=== PATIENT | female | born 1940 | race Caucasian/White ===

== ENCOUNTER 2021-02-01 19:31 | Inpatient (IN) | payer OTHER, MEDICAID ==
[~2021-02-01] VITALS: Ht 152.4 cm; Wt 75.7 kg
[2021-02-01] MEDS ORDERED: PIPERACILLIN/TAZ 3.375G PREMIX 50 ML IV ONE (20:30)
[2021-02-01] MEDS ORDERED: VANCOMYCIN 1 G PREMIX 200 ML IV ONE (20:30)
[2021-02-01] MEDS ORDERED: ASPIRIN 81MG TABLET PO ONE (20:30)
[2021-02-01] MEDS ORDERED: DEXAMETHASONE 10 MG/ML VIAL IV ONE (20:30)
[2021-02-01] MEDS ORDERED: SODIUM CHLORIDE 0.9% 1000ML BAG (SEPSIS BOLUS) IV ONE (20:30)
[2021-02-01 20:41] LABS: BASOPHILS % 0.9 % (0.0-2.0); EOSINOPHILS % 0.5 % (0.0-5.0); HEMATOCRIT. 29.9 % (36.0-48.0); HEMOGLOBIN. 9.9 g/dL (12.0-16.0); LYMPHOCYTES % 8.7 % (20.0-50.0); MEAN CORPUSCULAR HEMOGLOBIN 27.2 pg (28.0-32.0); MEAN CORPUSCULAR VOLUME 82.1 fL (81.0-99.0); MEAN PLATELET VOLUME 10.4 fl (7.4-10.4); MONOCYTES % 10.2 % (2.0-8.0); NEUTROPHILS % 79.7 % (40.0-76.0); PLATELET 153 x1000/uL (130-400); RED BLOOD CELL COUNT 3.64 mill/uL (4.2-5.4)
[2021-02-01 20:48] LABS: CHLORIDE 105 mEq/L (98-107)
[2021-02-01 21:04] LABS: PROTHROMBIN TIME 11.1 sec (9.6-11.0)
[2021-02-01 21:32] LABS: BG BASE EXCESS -2.3 mmol/L (-2.0-2.0); BG CARBOXYHEMOGLOBIN 0.2 % (0.5-1.5); BG DEOXYHEMOGLOBIN 3.7 % (0.0-5.0); BG FRACTION INSPIRED OXYGEN 100; BG HCO3 ACT 29.7 mmol/L (22.0-26.0); BG METHEMOGLOBIN 0.4 % (0.0-1.5); BG OXYGEN SATURATION 96.3 % (92.0-98.5); BG OXYHEMOGLOBIN 95.7 % (94.0-97.0); BG PCO2 102.7 mmHg (35.0-45.0); BG PH 7.079 (7.350-7.450); BG PO2 116.1 mmHg (75.0-100.0); BG TOTAL HEMOGLOBIN 11.3 g/dL (12.0-18.0); BG VENT MODE MASK - BIPAP
[2021-02-01] MEDS ORDERED: PROPOFOL 10MG/ML 100ML 100 ML IV STA (21:32)
[2021-02-01] MEDS ORDERED: ETOMIDATE 2MG/ML 10ML VIAL IV ONE (21:45)
[2021-02-01] MEDS ORDERED: VECURONIUM BROMIDE 10 MG/VIAL IV ONE (21:45)
[2021-02-01] MEDS ORDERED: NOREPINEPHRINE 8 MG in DEXT 5% WATER 242 ML IV STA (22:36)
[2021-02-01 22:56] LABS: BG BASE EXCESS -4.1 mmol/L (-2.0-2.0); BG CARBOXYHEMOGLOBIN 0.3 % (0.5-1.5); BG DEOXYHEMOGLOBIN 2.4 % (0.0-5.0); BG FRACTION INSPIRED OXYGEN 100; BG HCO3 ACT 19.8 mmol/L (22.0-26.0); BG METHEMOGLOBIN 0.1 % (0.0-1.5); BG OXYGEN SATURATION 97.6 % (92.0-98.5); BG OXYHEMOGLOBIN 97.2 % (94.0-97.0); BG PCO2 32.1 mmHg (35.0-45.0); BG PH 7.409 (7.350-7.450); BG PO2 103.3 mmHg (75.0-100.0); BG TOTAL HEMOGLOBIN 10.1 g/dL (12.0-18.0); BG TOTAL RESPIRATORY RATE 18 b/min; BG VENT MODE VENT - AC
[2021-02-01 22:57] LABS: BG SAMPLE SITE RIGHT BRACHIAL
[2021-02-01] MEDS ORDERED: NOREPINEPHRINE 8MG/250ML PMX 250 ML IV ONE (23:30)
[2021-02-02] VITALS (34 sets, daily range): BP systolic 108–183; BP diastolic 29–128
[2021-02-02 00:23] LABS: HEPATITIS B SURFACE AB > 1000.0 mIU/mL
[2021-02-02 00:34] LABS: HEPATITIS B SURFACE ANTIGEN NEGATIVE
[2021-02-02 01:02] LABS: CLARITY URINE CLEAR (CLEAR); COLOR URINE YELLOW (YELLOW); KETONES URINE NEGATIVE (NEGATIVE); LEUKOCYTE ESTERASE URINE NEGATIVE (NEGATIVE); NITRITE URINE NEGATIVE (NEGATIVE); OCCULT BLOOD URINE NEGATIVE (NEGATIVE); PH URINE 5.5 (4.5-8.0); PROTEIN URINE TRACE (NEGATIVE); SPECIFIC GRAVITY URINE 1.015 (1.005-1.030); UROBILINOGEN URINE 0.2 E.U./dL (0.2-1.0)
[2021-02-02] MEDS ORDERED: CEFTRIAXONE 1 G PREMIX 50 ML IV SCH (03:15)
[2021-02-02] MEDS ORDERED: ACETAMINOPHEN 325MG TABLET PO PRN (03:15)
[2021-02-02] MEDS: DEXT 5%/0.45% NACL 1000ML 1,000 ML IV SCH ×2 (03:22→16:09)
[2021-02-02] MEDS ORDERED: PROPOFOL 10MG/ML 100ML 100 ML IV PRN (04:00)
[2021-02-02] MEDS ORDERED: NOREPINEPHRINE 8 MG in DEXTROSE 5% WATER 250 ML IV PRN (04:00)
[2021-02-02] MEDS ORDERED: AZITHROMYCIN 500MG/250ML 250 ML IV SCH (04:00)
[2021-02-02] MEDS ORDERED: CEFTRIAXONE 1,000 MG in DEXTROSE 5% WATER 50 ML IV SCH (04:00)
[2021-02-02] MEDS ORDERED: IPRATROPIUM/ALBUTEROL 0.5-3(2.5)MG/3ML NEB HHN PRN (08:15)
[2021-02-02] MEDS: ENOXAPARIN 40MG/0.4ML SYR SUBCUT SCH (11:00)
[2021-02-02] MEDS: IPRATROPIUM/ALBUTEROL 0.5-3(2.5)MG/3ML NEB HHN SCH ×3 (11:48→20:20)
[2021-02-02] MEDS: PROPOFOL 10MG/ML 100ML 100 ML IV PRN ×2 (11:55→19:25)
[2021-02-02] MEDS: HYDRALAZINE 20MG/ML VIAL IV PRN (16:08)
[2021-02-02 18:53] LABS: *AMPHETAMINES SCREEN URINE NEGATIVE (NEGATIVE); *BARBITURATES SCREEN URINE NEGATIVE (NEGATIVE); *COCAINE SCREEN URINE NEGATIVE (NEGATIVE); CANNABINOID URINE SCREEN NEGATIVE (NEGATIVE); METHADONE URINE SCREEN NEGATIVE (NEGATIVE); OPIATES URINE SCREEN NEGATIVE (NEGATIVE); PHENCYCLIDINE URINE SCREEN NEGATIVE (NEGATIVE)
[2021-02-02 18:54] LABS: *BENZODIAZEPINES SCREEN URINE NEGATIVE (NEGATIVE)
[2021-02-02] MEDS: AMLODIPINE 5MG TABLET PO SCH (21:16)
[2021-02-02] MEDS: HYDRALAZINE HCL 25MG TABLET PO SCH (21:16)
[2021-02-03] VITALS (53 sets, daily range): BP systolic 90–144; BP diastolic 33–93
[2021-02-03] MEDS: IPRATROPIUM/ALBUTEROL 0.5-3(2.5)MG/3ML NEB HHN SCH ×6 (00:08→20:16)
[2021-02-03] MEDS: PROPOFOL 10MG/ML 100ML 100 ML IV PRN (05:08)
[2021-02-03 05:10] LABS: HIV SCREEN 4G Non Reactive (Non Reactive)
[2021-02-03] MEDS: HYDRALAZINE HCL 25MG TABLET PO SCH ×3 (05:13→21:21)
[2021-02-03] MEDS: DEXT 5%/0.45% NACL 1000ML 1,000 ML IV SCH ×2 (05:41→18:17)
[2021-02-03 08:54] LABS: BG BASE EXCESS 2.2 mmol/L (-2.0-2.0); BG CARBOXYHEMOGLOBIN 0.3 % (0.5-1.5); BG DEOXYHEMOGLOBIN 1.8 % (0.0-5.0); BG FRACTION INSPIRED OXYGEN 60; BG HCO3 ACT 26.1 mmol/L (22.0-26.0); BG METHEMOGLOBIN 0.3 % (0.0-1.5); BG OXYGEN SATURATION 98.2 % (92.0-98.5); BG OXYHEMOGLOBIN 97.6 % (94.0-97.0); BG PCO2 38.3 mmHg (35.0-45.0); BG PH 7.452 (7.350-7.450); BG PO2 116.4 mmHg (75.0-100.0); BG SAMPLE SITE RIGHT RADIAL; BG TOTAL HEMOGLOBIN 10.6 g/dL (12.0-18.0); BG VENT MODE VENT - AC
[2021-02-03] MEDS: AMLODIPINE 5MG TABLET PO SCH ×2 (09:00→21:20)
[2021-02-03] MEDS: CEFTRIAXONE 1,000 MG in DEXTROSE 5% WATER 50 ML IV SCH (09:17)
[2021-02-03] MEDS: AZITHROMYCIN 500MG in DEXTROSE 5% WATER 250ML IV SCH (09:17)
[2021-02-03] MEDS: ENOXAPARIN 40MG/0.4ML SYR SUBCUT SCH (09:18)
[2021-02-03 10:08] LABS: BASOPHILS % 0.7 % (0.0-2.0); EOSINOPHILS % 2.7 % (0.0-5.0); HEMOGLOBIN. 10.8 g/dL (12.0-16.0); LYMPHOCYTES % 16.5 % (20.0-50.0); MEAN CORPUSCULAR HEMOGLOBIN 27.3 pg (28.0-32.0); MEAN CORPUSCULAR VOLUME 83.3 fL (81.0-99.0); MEAN PLATELET VOLUME 10.7 fl (7.4-10.4); MONOCYTES % 6.7 % (2.0-8.0); NEUTROPHILS % 73.4 % (40.0-76.0); PLATELET 167 x1000/uL (130-400); RED BLOOD CELL COUNT 3.96 mill/uL (4.2-5.4); RED CELL DISTRIBUTION WIDTH 16.5 % (11.6-14.6)
[2021-02-03 10:10] LABS: CHLORIDE 107 mEq/L (98-107)
[2021-02-03 10:17] LABS: LDL CHOLESTEROL 56 mg/dL (5-100)
[2021-02-03 10:18] LABS: HDL CHOLESTEROL 24 mg/dL (40-59); TOTAL IRON BINDING CAPACITY 245 ug/dL (250-450)
[2021-02-03 10:52] LABS: VITAMIN B12 SERUM 159 pg/mL (211-911)
[2021-02-03] MEDS ORDERED: PROPOFOL 10MG/ML 100ML 100 ML IV PRN (12:00)
[2021-02-03 12:52] LABS: BG BASE EXCESS 2.4 mmol/L (-2.0-2.0); BG CARBOXYHEMOGLOBIN 0.3 % (0.5-1.5); BG FRACTION INSPIRED OXYGEN 50; BG HCO3 ACT 25.9 mmol/L (22.0-26.0); BG METHEMOGLOBIN 0.7 % (0.0-1.5); BG PCO2 35.8 mmHg (35.0-45.0); BG PH 7.477 (7.350-7.450); BG PO2 249.8 mmHg (75.0-100.0); BG SAMPLE SITE RIGHT RADIAL; BG TOTAL HEMOGLOBIN 11.1 g/dL (12.0-18.0); BG VENT MODE VENT - CPAP
[2021-02-04] VITALS (51 sets, daily range): BP systolic 101–156; BP diastolic 42–112
[2021-02-04] MEDS: DEXT 5%/0.45% NACL 1000ML 1,000 ML IV SCH (03:58)
[2021-02-04] MEDS: HYDRALAZINE HCL 25MG TABLET PO SCH ×3 (07:20→22:31)
[2021-02-04] MEDS: IPRATROPIUM/ALBUTEROL 0.5-3(2.5)MG/3ML NEB HHN SCH ×4 (09:15→20:34)
[2021-02-04] MEDS: AZITHROMYCIN 500MG in DEXTROSE 5% WATER 250ML IV SCH (09:42)
[2021-02-04] MEDS: ENOXAPARIN 40MG/0.4ML SYR SUBCUT SCH (09:42)
[2021-02-04] MEDS: CEFTRIAXONE 1,000 MG in DEXTROSE 5% WATER 50 ML IV SCH (09:42)
[2021-02-04] MEDS: AMLODIPINE 5MG TABLET PO SCH ×2 (09:44→22:32)
[2021-02-04 11:20] LABS: BASOPHILS % 0.8 % (0.0-2.0); EOSINOPHILS % 3.6 % (0.0-5.0); HEMATOCRIT. 31.7 % (36.0-48.0); HEMOGLOBIN. 10.4 g/dL (12.0-16.0); MEAN CORPUSCULAR HEMOGLOBIN 27.3 pg (28.0-32.0); MEAN CORPUSCULAR VOLUME 83.2 fL (81.0-99.0); MEAN PLATELET VOLUME 10.4 fl (7.4-10.4); MONOCYTES % 6.6 % (2.0-8.0); PLATELET 189 x1000/uL (130-400); RED BLOOD CELL COUNT 3.81 mill/uL (4.2-5.4); RED CELL DISTRIBUTION WIDTH 16.5 % (11.6-14.6)
[2021-02-04 11:21] LABS: CHLORIDE 113 mEq/L (98-107)
[2021-02-04 12:40] LABS: BG BASE EXCESS 2.2 mmol/L (-2.0-2.0); BG CARBOXYHEMOGLOBIN 0.3 % (0.5-1.5); BG DEOXYHEMOGLOBIN 2.1 % (0.0-5.0); BG FRACTION INSPIRED OXYGEN 40; BG HCO3 ACT 27.3 mmol/L (22.0-26.0); BG METHEMOGLOBIN 0.1 % (0.0-1.5); BG OXYGEN SATURATION 97.9 % (92.0-98.5); BG OXYHEMOGLOBIN 97.5 % (94.0-97.0); BG PCO2 44.5 mmHg (35.0-45.0); BG PH 7.405 (7.350-7.450); BG PO2 106.8 mmHg (75.0-100.0); BG SAMPLE SITE RIGHT BRACHIAL; BG TOTAL HEMOGLOBIN 11.2 g/dL (12.0-18.0); BG VENT MODE COOL AEROSOL
[2021-02-04] MEDS ORDERED: DEXTROSE 50% WATER 50ML SYRINGE IV PRN (14:45)
[2021-02-04] MEDS: DORZOLAM/TIMOLOL 2.23/0.68% OPHTH DROPS 10ML BOTHEYE SCH ×2 (14:56→22:31)
[2021-02-04] MEDS: INSULIN LISPRO 100 UNITS/ML SUBCUT SCH ×2 (18:20→21:00)
[2021-02-04] MEDS: BLOOD SUGAR DIAGNOSTIC STRIP TEST SCH ×2 (18:49→21:00)
[2021-02-04] MEDS: LATANOPROST 0.005% OPHTH DROPS 2.5ML BOTHEYE SCH (22:31)
[2021-02-05] VITALS (27 sets, daily range): BP systolic 108–164; BP diastolic 56–131
[2021-02-05] MEDS: IPRATROPIUM/ALBUTEROL 0.5-3(2.5)MG/3ML NEB HHN SCH ×5 (01:00→20:49)
[2021-02-05] MEDS: HYDRALAZINE HCL 25MG TABLET PO SCH ×3 (05:23→21:53)
[2021-02-05] MEDS: BLOOD SUGAR DIAGNOSTIC STRIP TEST SCH ×4 (06:30→20:44)
[2021-02-05] MEDS: INSULIN LISPRO 100 UNITS/ML SUBCUT SCH ×4 (07:26→20:44)
[2021-02-05] MEDS: AMLODIPINE 5MG TABLET PO SCH ×2 (08:15→20:53)
[2021-02-05] MEDS: ENOXAPARIN 40MG/0.4ML SYR SUBCUT SCH (08:16)
[2021-02-05] MEDS: DORZOLAM/TIMOLOL 2.23/0.68% OPHTH DROPS 10ML BOTHEYE SCH ×2 (08:16→20:54)
[2021-02-05] MEDS: AZITHROMYCIN 500MG in DEXTROSE 5% WATER 250ML IV SCH (08:16)
[2021-02-05] MEDS: CEFTRIAXONE 1,000 MG in DEXTROSE 5% WATER 50 ML IV SCH (11:00)
[2021-02-05] MEDS: LATANOPROST 0.005% OPHTH DROPS 2.5ML BOTHEYE SCH (20:54)
[2021-02-06] VITALS (10 sets, daily range): BP systolic 107–149; BP diastolic 54–99
[2021-02-06] MEDS: HYDRALAZINE HCL 25MG TABLET PO SCH (05:23)
[2021-02-06] MEDS: BLOOD SUGAR DIAGNOSTIC STRIP TEST SCH ×4 (05:59→21:00)
[2021-02-06] MEDS: INSULIN LISPRO 100 UNITS/ML SUBCUT SCH ×4 (06:00→21:00)
[2021-02-06] MEDS: IPRATROPIUM/ALBUTEROL 0.5-3(2.5)MG/3ML NEB HHN SCH ×4 (08:25→20:08)
[2021-02-06] MEDS: DORZOLAM/TIMOLOL 2.23/0.68% OPHTH DROPS 10ML BOTHEYE SCH ×2 (08:48→21:40)
[2021-02-06] MEDS: AMLODIPINE 5MG TABLET PO SCH ×2 (08:48→21:38)
[2021-02-06] MEDS: ENOXAPARIN 40MG/0.4ML SYR SUBCUT SCH (08:48)
[2021-02-06] MEDS ORDERED: AZITHROMYCIN 500 MG TABLET PO SCH (09:00)
[2021-02-06] MEDS: CEFTRIAXONE 1,000 MG in DEXTROSE 5% WATER 50 ML IV SCH (10:22)
[2021-02-06 12:34] LABS: BG BASE EXCESS 5.4 mmol/L (-2.0-2.0); BG CARBOXYHEMOGLOBIN 0.2 % (0.5-1.5); BG DEOXYHEMOGLOBIN 3.5 % (0.0-5.0); BG FRACTION INSPIRED OXYGEN 28; BG HCO3 ACT 29.6 mmol/L (22.0-26.0); BG METHEMOGLOBIN 0.3 % (0.0-1.5); BG OXYGEN SATURATION 96.5 % (92.0-98.5); BG PCO2 42.1 mmHg (35.0-45.0); BG PH 7.465 (7.350-7.450); BG PO2 84.8 mmHg (75.0-100.0); BG SAMPLE SITE RIGHT BRACHIAL; BG TOTAL HEMOGLOBIN 11.3 g/dL (12.0-18.0); BG VENT MODE NASAL CANNULA
[2021-02-06] MEDS: HYDRALAZINE HCL 50MG TABLET PO SCH ×2 (14:00→21:38)
[2021-02-06] MEDS: LATANOPROST 0.005% OPHTH DROPS 2.5ML BOTHEYE SCH (21:40)
[2021-02-06] MEDS: ONDANSETRON HCL 4MG/2ML INJ IV PRN (22:41)
[2021-02-06] MEDS ORDERED: LACTULOSE 20G/30ML UDC PO PRN (23:30)
[2021-02-07] VITALS (33 sets, daily range): BP systolic 89–146; BP diastolic 34–110
[2021-02-07 03:43] LABS: BG BASE EXCESS 1.5 mmol/L (-2.0-2.0); BG CARBOXYHEMOGLOBIN 0.2 % (0.5-1.5); BG DEOXYHEMOGLOBIN 7.6 % (0.0-5.0); BG FRACTION INSPIRED OXYGEN 50; BG HCO3 ACT 32.7 mmol/L (22.0-26.0); BG METHEMOGLOBIN 0.2 % (0.0-1.5); BG OXYGEN SATURATION 92.4 % (92.0-98.5); BG PCO2 97.7 mmHg (35.0-45.0); BG PH 7.143 (7.350-7.450); BG PO2 83.4 mmHg (75.0-100.0); BG SAMPLE SITE RIGHT RADIAL; BG TOTAL HEMOGLOBIN 11.4 g/dL (12.0-18.0); BG VENT MODE MASK - BIPAP
[2021-02-07] MEDS: HYDRALAZINE HCL 50MG TABLET PO SCH ×3 (06:00→22:00)
[2021-02-07] MEDS: BLOOD SUGAR DIAGNOSTIC STRIP TEST SCH ×4 (07:30→23:23)
[2021-02-07] MEDS: IPRATROPIUM/ALBUTEROL 0.5-3(2.5)MG/3ML NEB HHN SCH ×4 (08:00→20:33)
[2021-02-07] MEDS: INSULIN LISPRO 100 UNITS/ML SUBCUT SCH ×4 (08:00→23:32)
[2021-02-07] MEDS ORDERED: ETOMIDATE 2MG/ML 10ML VIAL IV ONE ×2 (08:10→13:51)
[2021-02-07] MEDS ORDERED: SODIUM CHLORIDE 0.9% 10ML VIAL ONE ×2 (08:10→13:51)
[2021-02-07] MEDS ORDERED: VECURONIUM BROMIDE 10 MG/VIAL IV ONE ×2 (08:10→13:51)
[2021-02-07] MEDS: AMLODIPINE 5MG TABLET PO SCH ×2 (09:00→21:00)
[2021-02-07] MEDS: LACTULOSE 20G/30ML UDC PO SCH (09:00)
[2021-02-07] MEDS: ENOXAPARIN 40MG/0.4ML SYR SUBCUT SCH (09:15)
[2021-02-07] MEDS: DORZOLAM/TIMOLOL 2.23/0.68% OPHTH DROPS 10ML BOTHEYE SCH ×2 (09:18→22:02)
[2021-02-07 09:39] LABS: BG BASE EXCESS 2.6 mmol/L (-2.0-2.0); BG CARBOXYHEMOGLOBIN 0.3 % (0.5-1.5); BG DEOXYHEMOGLOBIN 12.6 % (0.0-5.0); BG HCO3 ACT 34.2 mmol/L (22.0-26.0); BG METHEMOGLOBIN 0.3 % (0.0-1.5); BG OXYGEN SATURATION 87.3 % (92.0-98.5); BG OXYHEMOGLOBIN 86.8 % (94.0-97.0); BG PCO2 101.7 mmHg (35.0-45.0); BG PH 7.144 (7.350-7.450); BG PO2 62.9 mmHg (75.0-100.0); BG SAMPLE SITE RIGHT BRACHIAL; BG TOTAL HEMOGLOBIN 11.7 g/dL (12.0-18.0); BG VENT MODE MASK - BIPAP
[2021-02-07 11:02] LABS: BG BASE EXCESS 3.2 mmol/L (-2.0-2.0); BG DEOXYHEMOGLOBIN 1.9 % (0.0-5.0); BG FRACTION INSPIRED OXYGEN 60; BG HCO3 ACT 26.1 mmol/L (22.0-26.0); BG METHEMOGLOBIN 0.1 % (0.0-1.5); BG OXYGEN SATURATION 98.1 % (92.0-98.5); BG PH 7.503 (7.350-7.450); BG PO2 98.1 mmHg (75.0-100.0); BG SAMPLE SITE RIGHT RADIAL; BG TOTAL HEMOGLOBIN 11.3 g/dL (12.0-18.0); BG VENT MODE VENT - AC
[2021-02-07] MEDS: CEFEPIME 2,000 MG in DEXT 5% WATER 100 ML IV SCH ×2 (11:34→21:11)
[2021-02-07] MEDS: PROPOFOL 10MG/ML 100ML 100 ML IV PRN (11:37)
[2021-02-07 11:57] LABS: CHLORIDE 106 mEq/L (98-107)
[2021-02-07 12:06] LABS: BASOPHILS % 0.7 % (0.0-2.0); EOSINOPHILS % 1.3 % (0.0-5.0); HEMATOCRIT. 31.5 % (36.0-48.0); HEMOGLOBIN. 10.4 g/dL (12.0-16.0); LYMPHOCYTES % 12.8 % (20.0-50.0); MEAN CORPUSCULAR HEMOGLOBIN 27.1 pg (28.0-32.0); MEAN CORPUSCULAR VOLUME 82.3 fL (81.0-99.0); MEAN PLATELET VOLUME 9.1 fl (7.4-10.4); MONOCYTES % 7.3 % (2.0-8.0); NEUTROPHILS % 77.9 % (40.0-76.0); PLATELET 145 x1000/uL (130-400); RED BLOOD CELL COUNT 3.83 mill/uL (4.2-5.4)
[2021-02-07] MEDS: PANTOPRAZOLE SODIUM 40 MG/VIAL IV SCH (12:29)
[2021-02-07] MEDS ORDERED: LACTULOSE 20G/30ML UDC PO SCH (13:00)
[2021-02-07] MEDS: METHYLPREDNISOLONE SOD SUCC 125 MG/2 ML VIAL IV SCH ×2 (13:35→22:02)
[2021-02-07] MEDS: FENTANYL CITRATE/PF 2,500 MCG in SODIUM CHLORIDE 0.9% 200 ML IV PRN (18:05)
[2021-02-07] MEDS: LATANOPROST 0.005% OPHTH DROPS 2.5ML BOTHEYE SCH (21:10)
[2021-02-07 23:42] LABS: BG CARBOXYHEMOGLOBIN 0.3 % (0.5-1.5); BG DEOXYHEMOGLOBIN 0.3 % (0.0-5.0); BG FRACTION INSPIRED OXYGEN 100; BG HCO3 ACT 28.4 mmol/L (22.0-26.0); BG METHEMOGLOBIN 0.2 % (0.0-1.5); BG OXYGEN SATURATION 99.7 % (92.0-98.5); BG OXYHEMOGLOBIN 99.2 % (94.0-97.0); BG PCO2 52.6 mmHg (35.0-45.0); BG SAMPLE SITE LEFT BRACHIAL; BG TOTAL HEMOGLOBIN 11.8 g/dL (12.0-18.0); BG VENT MODE MASK - BIPAP
[2021-02-08] VITALS (45 sets, daily range): BP systolic 83–149; BP diastolic 38–104
[2021-02-08] MEDS: IPRATROPIUM/ALBUTEROL 0.5-3(2.5)MG/3ML NEB HHN SCH ×6 (00:41→20:14)
[2021-02-08 05:36] LABS: BG BASE EXCESS 0.2 mmol/L (-2.0-2.0); BG DEOXYHEMOGLOBIN 0.5 % (0.0-5.0); BG FRACTION INSPIRED OXYGEN 50; BG HCO3 ACT 28.7 mmol/L (22.0-26.0); BG METHEMOGLOBIN 0.2 % (0.0-1.5); BG OXYGEN SATURATION 99.5 % (92.0-98.5); BG OXYHEMOGLOBIN 99.3 % (94.0-97.0); BG PCO2 67.2 mmHg (35.0-45.0); BG PH 7.248 (7.350-7.450); BG PO2 264.3 mmHg (75.0-100.0); BG SAMPLE SITE LEFT BRACHIAL; BG TOTAL HEMOGLOBIN 11.2 g/dL (12.0-18.0); BG VENT MODE MASK - BIPAP
[2021-02-08] MEDS ORDERED: SODIUM CHLORIDE 0.9% 250 ML IV ONE (05:45)
[2021-02-08] MEDS: INSULIN LISPRO 100 UNITS/ML SUBCUT SCH ×3 (06:00→18:00)
[2021-02-08] MEDS: BLOOD SUGAR DIAGNOSTIC STRIP TEST SCH ×3 (06:00→18:04)
[2021-02-08] MEDS: HYDRALAZINE HCL 50MG TABLET PO SCH ×3 (06:00→22:00)
[2021-02-08 06:07] LABS: CHLORIDE 105 mEq/L (98-107)
[2021-02-08] MEDS: METHYLPREDNISOLONE SOD SUCC 125 MG/2 ML VIAL IV SCH ×3 (06:42→21:58)
[2021-02-08 07:43] LABS: BG BASE EXCESS 0.9 mmol/L (-2.0-2.0); BG DEOXYHEMOGLOBIN 2.8 % (0.0-5.0); BG FRACTION INSPIRED OXYGEN 50; BG HCO3 ACT 29.6 mmol/L (22.0-26.0); BG METHEMOGLOBIN 0.1 % (0.0-1.5); BG OXYGEN SATURATION 97.2 % (92.0-98.5); BG OXYHEMOGLOBIN 97.1 % (94.0-97.0); BG PCO2 70.1 mmHg (35.0-45.0); BG PH 7.244 (7.350-7.450); BG PO2 104.1 mmHg (75.0-100.0); BG SAMPLE SITE LEFT BRACHIAL; BG TOTAL HEMOGLOBIN 11.5 g/dL (12.0-18.0); BG TOTAL RESPIRATORY RATE 28 b/min; BG VENT MODE MASK - BIPAP
[2021-02-08] MEDS ORDERED: PROPOFOL 10MG/ML 100ML 100 ML IV PRN (08:00)
[2021-02-08] MEDS ORDERED: TERBUTALINE SULFATE 1MG/ML VIAL SUBCUT NR (08:00)
[2021-02-08] MEDS: PROPOFOL 10MG/ML 100ML 100 ML IV PRN (08:21)
[2021-02-08] MEDS: AMLODIPINE 5MG TABLET PO SCH ×2 (09:00→21:00)
[2021-02-08] MEDS: LACTULOSE 20G/30ML UDC PO SCH (09:14)
[2021-02-08] MEDS: ENOXAPARIN 40MG/0.4ML SYR SUBCUT SCH (09:14)
[2021-02-08] MEDS: CEFEPIME 2,000 MG in DEXT 5% WATER 100 ML IV SCH ×2 (09:14→21:59)
[2021-02-08] MEDS: PANTOPRAZOLE SODIUM 40 MG/VIAL IV SCH (09:14)
[2021-02-08] MEDS: DORZOLAM/TIMOLOL 2.23/0.68% OPHTH DROPS 10ML BOTHEYE SCH ×2 (09:15→21:59)
[2021-02-08 09:57] LABS: BG BASE EXCESS 3.3 mmol/L (-2.0-2.0); BG DEOXYHEMOGLOBIN 0.9 % (0.0-5.0); BG FRACTION INSPIRED OXYGEN 60; BG METHEMOGLOBIN 0.2 % (0.0-1.5); BG OXYGEN SATURATION 99.1 % (92.0-98.5); BG OXYHEMOGLOBIN 98.9 % (94.0-97.0); BG PO2 168.9 mmHg (75.0-100.0); BG SAMPLE SITE RIGHT RADIAL; BG TOTAL HEMOGLOBIN 11.2 g/dL (12.0-18.0); BG VENT MODE VENT - AC
[2021-02-08 10:17] LABS: BASOPHILS % 0.1 % (0.0-2.0); HEMATOCRIT. 32.7 % (36.0-48.0); HEMOGLOBIN. 10.6 g/dL (12.0-16.0); LYMPHOCYTES % 9.5 % (20.0-50.0); MEAN CORPUSCULAR HEMOGLOBIN 27.2 pg (28.0-32.0); MEAN CORPUSCULAR VOLUME 83.5 fL (81.0-99.0); MEAN PLATELET VOLUME 10.4 fl (7.4-10.4); MONOCYTES % 4.2 % (2.0-8.0); NEUTROPHILS % 86.2 % (40.0-76.0); PLATELET 235 x1000/uL (130-400); RED BLOOD CELL COUNT 3.91 mill/uL (4.2-5.4); RED CELL DISTRIBUTION WIDTH 16.3 % (11.6-14.6)
[2021-02-08] MEDS: LATANOPROST 0.005% OPHTH DROPS 2.5ML BOTHEYE SCH (21:59)
[2021-02-09] VITALS (58 sets, daily range): BP systolic 76–185; BP diastolic 28–100
[2021-02-09] MEDS: IPRATROPIUM/ALBUTEROL 0.5-3(2.5)MG/3ML NEB HHN SCH ×6 (00:31→20:15)
[2021-02-09] MEDS: BLOOD SUGAR DIAGNOSTIC STRIP TEST SCH ×5 (00:52→23:47)
[2021-02-09] MEDS: INSULIN LISPRO 100 UNITS/ML SUBCUT SCH ×4 (00:57→17:34)
[2021-02-09] MEDS: FENTANYL CITRATE/PF 2,500 MCG in SODIUM CHLORIDE 0.9% 200 ML IV PRN ×2 (01:08→15:36)
[2021-02-09 06:15] LABS: CHLORIDE 105 mEq/L (98-107)
[2021-02-09 06:21] LABS: HEMATOCRIT. 30.4 % (36.0-48.0); HEMOGLOBIN. 9.9 g/dL (12.0-16.0); MEAN CORPUSCULAR HEMOGLOBIN 26.6 pg (28.0-32.0); MEAN PLATELET VOLUME 10.5 fl (7.4-10.4); PLATELET 178 x1000/uL (130-400); RED BLOOD CELL COUNT 3.71 mill/uL (4.2-5.4); RED CELL DISTRIBUTION WIDTH 15.8 % (11.6-14.6)
[2021-02-09] MEDS: METHYLPREDNISOLONE SOD SUCC 125 MG/2 ML VIAL IV SCH ×3 (07:07→21:38)
[2021-02-09] MEDS: HYDRALAZINE HCL 50MG TABLET PO SCH ×3 (07:07→21:38)
[2021-02-09 08:08] LABS: PLATELET ESTIMATE NORMAL
[2021-02-09 08:50] LABS: BG BASE EXCESS 4.1 mmol/L (-2.0-2.0); BG DEOXYHEMOGLOBIN 0.9 % (0.0-5.0); BG FRACTION INSPIRED OXYGEN 60; BG HCO3 ACT 26.6 mmol/L (22.0-26.0); BG METHEMOGLOBIN 0.3 % (0.0-1.5); BG OXYGEN SATURATION 99.1 % (92.0-98.5); BG OXYHEMOGLOBIN 98.8 % (94.0-97.0); BG PCO2 32.7 mmHg (35.0-45.0); BG PH 7.528 (7.350-7.450); BG PO2 162.9 mmHg (75.0-100.0); BG SAMPLE SITE RIGHT RADIAL; BG TOTAL HEMOGLOBIN 11.1 g/dL (12.0-18.0); BG VENT MODE VENT - AC
[2021-02-09] MEDS: ENOXAPARIN 40MG/0.4ML SYR SUBCUT SCH (08:55)
[2021-02-09] MEDS: PANTOPRAZOLE SODIUM 40 MG/VIAL IV SCH (08:55)
[2021-02-09] MEDS: DORZOLAM/TIMOLOL 2.23/0.68% OPHTH DROPS 10ML BOTHEYE SCH ×2 (08:55→21:37)
[2021-02-09] MEDS: LACTULOSE 20G/30ML UDC PO SCH (08:56)
[2021-02-09] MEDS: AMLODIPINE 5MG TABLET PO SCH ×3 (08:56→21:38)
[2021-02-09] MEDS: CEFEPIME 2,000 MG in DEXT 5% WATER 100 ML IV SCH ×2 (08:56→21:36)
[2021-02-09] MEDS ORDERED: IOHEXOL-350 100 ML BOTTLE ONE (10:37)
[2021-02-09] MEDS ORDERED: PROPOFOL 10MG/ML 100ML 100 ML IV PRN (11:00)
[2021-02-09] MEDS ORDERED: FUROSEMIDE 40MG/4ML VIAL IVP NR (11:00)
[2021-02-09] MEDS ORDERED: ENOXAPARIN 60MG/0.6ML SYR SUBCUT NR (12:30)
[2021-02-09] MEDS: MIDAZOLAM HCL 100 MG in SODIUM CHLORIDE 0.9% 80 ML IV PRN (15:35)
[2021-02-09] MEDS: ACETYLCYSTEINE 100MG/ML 10% VIAL 4ML INH SCH (15:55)
[2021-02-09] MEDS: NOREPINEPHRINE 32 MG in DEXT 5% WATER 218 ML IV PRN (17:13)
[2021-02-09] MEDS: LATANOPROST 0.005% OPHTH DROPS 2.5ML BOTHEYE SCH (21:37)
[2021-02-09] MEDS: ENOXAPARIN 60MG/0.6ML SYR SUBCUT SCH (21:37)
[2021-02-10] VITALS (86 sets, daily range): BP systolic 75–160; BP diastolic 41–92
[2021-02-10] MEDS: INSULIN LISPRO 100 UNITS/ML SUBCUT SCH ×4 (00:12→18:49)
[2021-02-10] MEDS: IPRATROPIUM/ALBUTEROL 0.5-3(2.5)MG/3ML NEB HHN SCH ×6 (00:24→20:12)
[2021-02-10] MEDS: ACETYLCYSTEINE 100MG/ML 10% VIAL 4ML INH SCH ×3 (00:30→16:00)
[2021-02-10] MEDS: HYDRALAZINE HCL 50MG TABLET PO SCH ×3 (06:00→21:46)
[2021-02-10] MEDS: BLOOD SUGAR DIAGNOSTIC STRIP TEST SCH ×3 (06:35→18:29)
[2021-02-10] MEDS: METHYLPREDNISOLONE SOD SUCC 125 MG/2 ML VIAL IV SCH ×3 (06:36→21:45)
[2021-02-10] MEDS: AMLODIPINE 5MG TABLET PO SCH ×2 (09:00→21:00)
[2021-02-10 09:17] LABS: BG BASE EXCESS 4.8 mmol/L (-2.0-2.0); BG CARBOXYHEMOGLOBIN 0.4 % (0.5-1.5); BG DEOXYHEMOGLOBIN 2.1 % (0.0-5.0); BG FRACTION INSPIRED OXYGEN 40; BG HCO3 ACT 27.6 mmol/L (22.0-26.0); BG METHEMOGLOBIN 0.3 % (0.0-1.5); BG OXYHEMOGLOBIN 97.2 % (94.0-97.0); BG PCO2 35.2 mmHg (35.0-45.0); BG PH 7.512 (7.350-7.450); BG PO2 114.3 mmHg (75.0-100.0); BG SAMPLE SITE RIGHT RADIAL; BG TOTAL HEMOGLOBIN 10.7 g/dL (12.0-18.0); BG VENT MODE VENT - AC
[2021-02-10] MEDS: FENTANYL CITRATE/PF 2,500 MCG in SODIUM CHLORIDE 0.9% 200 ML IV PRN (10:03)
[2021-02-10] MEDS: PANTOPRAZOLE SODIUM 40 MG/VIAL IV SCH (10:09)
[2021-02-10] MEDS: ENOXAPARIN 60MG/0.6ML SYR SUBCUT SCH (10:10)
[2021-02-10] MEDS: LACTULOSE 20G/30ML UDC PO SCH (10:10)
[2021-02-10] MEDS: CEFEPIME 2,000 MG in DEXT 5% WATER 100 ML IV SCH ×2 (10:10→21:44)
[2021-02-10] MEDS: DORZOLAM/TIMOLOL 2.23/0.68% OPHTH DROPS 10ML BOTHEYE SCH ×2 (10:11→21:44)
[2021-02-10] MEDS ORDERED: FUROSEMIDE 20MG/2ML VIAL IVP NR (13:00)
[2021-02-10] MEDS: SODIUM CHLORIDE 0.9% 1,000 ML IV SCH (13:38)
[2021-02-10] MEDS: POLYETHYLENE GLYCOL 3350 (17GM) 1 DOSE PACK PO SCH (13:38)
[2021-02-10] MEDS: LATANOPROST 0.005% OPHTH DROPS 2.5ML BOTHEYE SCH (21:44)
[2021-02-10] MEDS: ENOXAPARIN 80MG/0.8ML SYR SUBCUT SCH (21:45)
[2021-02-11] VITALS (86 sets, daily range): BP systolic 82–173; BP diastolic 44–99
[2021-02-11] MEDS: IPRATROPIUM/ALBUTEROL 0.5-3(2.5)MG/3ML NEB HHN SCH ×7 (00:19→23:56)
[2021-02-11] MEDS: ACETYLCYSTEINE 100MG/ML 10% VIAL 4ML INH SCH ×4 (00:20→23:55)
[2021-02-11] MEDS: INSULIN LISPRO 100 UNITS/ML SUBCUT SCH ×4 (01:14→17:51)
[2021-02-11] MEDS: MIDAZOLAM HCL 100 MG in SODIUM CHLORIDE 0.9% 80 ML IV PRN (01:15)
[2021-02-11] MEDS: SODIUM CHLORIDE 0.9% 1,000 ML IV SCH ×2 (05:30→21:57)
[2021-02-11] MEDS: NOREPINEPHRINE 32 MG in DEXT 5% WATER 218 ML IV PRN (05:31)
[2021-02-11] MEDS: METHYLPREDNISOLONE SOD SUCC 125 MG/2 ML VIAL IV SCH ×2 (05:33→21:57)
[2021-02-11] MEDS: HYDRALAZINE HCL 50MG TABLET PO SCH ×3 (05:34→22:00)
[2021-02-11] MEDS: BLOOD SUGAR DIAGNOSTIC STRIP TEST SCH ×4 (05:57→17:41)
[2021-02-11 06:50] LABS: BASOPHILS % 0.3 % (0.0-2.0); EOSINOPHILS % 1.9 % (0.0-5.0); HEMATOCRIT. 32.7 % (36.0-48.0); HEMOGLOBIN. 10.9 g/dL (12.0-16.0); LYMPHOCYTES % 7.3 % (20.0-50.0); MEAN CORPUSCULAR HEMOGLOBIN 27.2 pg (28.0-32.0); MEAN CORPUSCULAR VOLUME 81.9 fL (81.0-99.0); MEAN PLATELET VOLUME 10.4 fl (7.4-10.4); MONOCYTES % 3.4 % (2.0-8.0); NEUTROPHILS % 87.1 % (40.0-76.0); PLATELET 224 x1000/uL (130-400); RED BLOOD CELL COUNT 3.99 mill/uL (4.2-5.4)
[2021-02-11 07:05] LABS: CHLORIDE 105 mEq/L (98-107)
[2021-02-11 08:26] LABS: BG BASE EXCESS 5.8 mmol/L (-2.0-2.0); BG CARBOXYHEMOGLOBIN 0.3 % (0.5-1.5); BG DEOXYHEMOGLOBIN 3.4 % (0.0-5.0); BG FRACTION INSPIRED OXYGEN 40; BG HCO3 ACT 28.5 mmol/L (22.0-26.0); BG METHEMOGLOBIN 0.1 % (0.0-1.5); BG OXYGEN SATURATION 96.6 % (92.0-98.5); BG OXYHEMOGLOBIN 96.2 % (94.0-97.0); BG PCO2 34.7 mmHg (35.0-45.0); BG PH 7.532 (7.350-7.450); BG PO2 83.4 mmHg (75.0-100.0); BG SAMPLE SITE LEFT RADIAL; BG TOTAL HEMOGLOBIN 11.7 g/dL (12.0-18.0); BG TOTAL RESPIRATORY RATE 14 b/min; BG VENT MODE VENT - AC
[2021-02-11] MEDS: LACTULOSE 20G/30ML UDC PO SCH (09:52)
[2021-02-11] MEDS: POLYETHYLENE GLYCOL 3350 (17GM) 1 DOSE PACK PO SCH (09:52)
[2021-02-11] MEDS: AMLODIPINE 5MG TABLET PO SCH ×2 (09:52→21:56)
[2021-02-11] MEDS: CEFEPIME 2,000 MG in DEXT 5% WATER 100 ML IV SCH ×2 (09:52→21:57)
[2021-02-11] MEDS: PANTOPRAZOLE SODIUM 40 MG/VIAL IV SCH (09:52)
[2021-02-11] MEDS: ENOXAPARIN 80MG/0.8ML SYR SUBCUT SCH ×2 (09:53→21:56)
[2021-02-11] MEDS: DORZOLAM/TIMOLOL 2.23/0.68% OPHTH DROPS 10ML BOTHEYE SCH ×2 (09:54→21:58)
[2021-02-11] MEDS: FENTANYL CITRATE/PF 2,500 MCG in SODIUM CHLORIDE 0.9% 200 ML IV PRN (10:03)
[2021-02-11] MEDS ORDERED: SORBITOL 70% SOLN 30ML PO ONE (11:00)
[2021-02-11 16:07] LABS: BG CARBOXYHEMOGLOBIN 0.3 % (0.5-1.5); BG DEOXYHEMOGLOBIN 5.5 % (0.0-5.0); BG FRACTION INSPIRED OXYGEN 40; BG HCO3 ACT 26.7 mmol/L (22.0-26.0); BG METHEMOGLOBIN 0.1 % (0.0-1.5); BG OXYGEN SATURATION 94.5 % (92.0-98.5); BG OXYHEMOGLOBIN 94.1 % (94.0-97.0); BG PCO2 47.1 mmHg (35.0-45.0); BG PH 7.371 (7.350-7.450); BG PO2 78.2 mmHg (75.0-100.0); BG SAMPLE SITE LEFT RADIAL; BG TOTAL HEMOGLOBIN 11.6 g/dL (12.0-18.0); BG TOTAL RESPIRATORY RATE 20 b/min; BG VENT MODE VENT - CPAP
[2021-02-11] MEDS ORDERED: SORBITOL 70% SOLN 30ML PO NR (17:45)
[2021-02-11] MEDS ORDERED: LORAZEPAM 2MG/ML CPJ IV PRN (21:30)
[2021-02-11] MEDS: LATANOPROST 0.005% OPHTH DROPS 2.5ML BOTHEYE SCH (21:58)
[2021-02-12] VITALS (82 sets, daily range): BP systolic 87–158; BP diastolic 36–90
[2021-02-12] MEDS: IPRATROPIUM/ALBUTEROL 0.5-3(2.5)MG/3ML NEB HHN SCH ×5 (04:09→20:41)
[2021-02-12] MEDS: HYDRALAZINE HCL 50MG TABLET PO SCH ×2 (05:19→14:50)
[2021-02-12] MEDS: BLOOD SUGAR DIAGNOSTIC STRIP TEST SCH ×4 (05:47→17:43)
[2021-02-12] MEDS: INSULIN LISPRO 100 UNITS/ML SUBCUT SCH ×4 (05:49→18:05)
[2021-02-12 08:03] LABS: HEMOGLOBIN. 11.2 g/dL (12.0-16.0); MEAN CORPUSCULAR HEMOGLOBIN 26.9 pg (28.0-32.0); MEAN PLATELET VOLUME 10.5 fl (7.4-10.4); PLATELET 246 x1000/uL (130-400); RED BLOOD CELL COUNT 4.15 mill/uL (4.2-5.4); RED CELL DISTRIBUTION WIDTH 16.4 % (11.6-14.6)
[2021-02-12 08:10] LABS: CHLORIDE 106 mEq/L (98-107)
[2021-02-12] MEDS: LACTULOSE 20G/30ML UDC PO SCH (08:17)
[2021-02-12] MEDS: ENOXAPARIN 80MG/0.8ML SYR SUBCUT SCH ×2 (08:17→20:32)
[2021-02-12] MEDS: AMLODIPINE 5MG TABLET PO SCH ×2 (08:17→20:32)
[2021-02-12] MEDS: PANTOPRAZOLE SODIUM 40 MG/VIAL IV SCH (08:17)
[2021-02-12] MEDS: METHYLPREDNISOLONE SOD SUCC 125 MG/2 ML VIAL IV SCH (08:17)
[2021-02-12] MEDS: DORZOLAM/TIMOLOL 2.23/0.68% OPHTH DROPS 10ML BOTHEYE SCH ×2 (08:17→20:31)
[2021-02-12] MEDS: POLYETHYLENE GLYCOL 3350 (17GM) 1 DOSE PACK PO SCH (08:17)
[2021-02-12] MEDS: SODIUM CHLORIDE 3% FOR INH 4ML UD NEB INH SCH ×2 (08:28→12:00)
[2021-02-12] MEDS: ACETYLCYSTEINE 100MG/ML 10% VIAL 4ML INH SCH ×2 (08:28→16:50)
[2021-02-12 09:11] LABS: PLATELET ESTIMATE NORMAL
[2021-02-12] MEDS ORDERED: BISACODYL 10MG SUPP PR SCH (11:00)
[2021-02-12] MEDS ORDERED: KETOROLAC 15MG/ML VIAL IV PRN (20:30)
[2021-02-12] MEDS: LATANOPROST 0.005% OPHTH DROPS 2.5ML BOTHEYE SCH (20:31)
[2021-02-13] VITALS (12 sets, daily range): BP systolic 110–152; BP diastolic 60–84
[2021-02-13] MEDS: IPRATROPIUM/ALBUTEROL 0.5-3(2.5)MG/3ML NEB HHN SCH ×6 (00:43→21:43)
[2021-02-13] MEDS: ACETYLCYSTEINE 100MG/ML 10% VIAL 4ML INH SCH ×2 (00:43→15:11)
[2021-02-13] MEDS: BLOOD SUGAR DIAGNOSTIC STRIP TEST SCH ×5 (00:59→23:56)
[2021-02-13] MEDS: INSULIN LISPRO 100 UNITS/ML SUBCUT SCH ×5 (06:00→23:56)
[2021-02-13] MEDS ORDERED: METHYLPREDNISOLONE SOD SUCC 125 MG/2 ML VIAL IV SCH (09:00)
[2021-02-13] MEDS: PANTOPRAZOLE SODIUM 40 MG/VIAL IV SCH (09:02)
[2021-02-13] MEDS: ENOXAPARIN 80MG/0.8ML SYR SUBCUT SCH ×2 (09:03→21:35)
[2021-02-13] MEDS: LACTULOSE 20G/30ML UDC PO SCH (09:04)
[2021-02-13] MEDS: DORZOLAM/TIMOLOL 2.23/0.68% OPHTH DROPS 10ML BOTHEYE SCH ×2 (09:04→21:35)
[2021-02-13] MEDS: POLYETHYLENE GLYCOL 3350 (17GM) 1 DOSE PACK PO SCH (09:07)
[2021-02-13] MEDS: AMLODIPINE 5MG TABLET PO SCH ×2 (09:25→21:35)
[2021-02-13 09:47] LABS: BG BASE EXCESS 3.1 mmol/L (-2.0-2.0); BG CARBOXYHEMOGLOBIN 0.4 % (0.5-1.5); BG DEOXYHEMOGLOBIN 4.7 % (0.0-5.0); BG FRACTION INSPIRED OXYGEN 32; BG HCO3 ACT 29.3 mmol/L (22.0-26.0); BG METHEMOGLOBIN 0.1 % (0.0-1.5); BG OXYGEN SATURATION 95.3 % (92.0-98.5); BG OXYHEMOGLOBIN 94.8 % (94.0-97.0); BG PCO2 51.9 mmHg (35.0-45.0); BG PO2 75.8 mmHg (75.0-100.0); BG SAMPLE SITE RIGHT RADIAL; BG VENT MODE NASAL CANNULA
[2021-02-13] MEDS: LATANOPROST 0.005% OPHTH DROPS 2.5ML BOTHEYE SCH (21:35)
[2021-02-14] VITALS (14 sets, daily range): BP systolic 103–138; BP diastolic 51–99
[2021-02-14] MEDS: IPRATROPIUM/ALBUTEROL 0.5-3(2.5)MG/3ML NEB HHN SCH ×6 (01:43→20:25)
[2021-02-14] MEDS: ACETYLCYSTEINE 100MG/ML 10% VIAL 4ML INH SCH ×2 (01:43→09:55)
[2021-02-14] MEDS: INSULIN LISPRO 100 UNITS/ML SUBCUT SCH ×3 (06:00→16:35)
[2021-02-14] MEDS: BLOOD SUGAR DIAGNOSTIC STRIP TEST SCH ×3 (06:29→16:17)
[2021-02-14] MEDS ORDERED: FUROSEMIDE 40MG/4ML VIAL IVP NR (08:00)
[2021-02-14] MEDS: AMLODIPINE 5MG TABLET PO SCH ×2 (08:10→21:37)
[2021-02-14] MEDS: POLYETHYLENE GLYCOL 3350 (17GM) 1 DOSE PACK PO SCH (08:10)
[2021-02-14] MEDS: PANTOPRAZOLE SODIUM 40 MG/VIAL IV SCH (08:10)
[2021-02-14] MEDS: ASCORBIC ACID 500 MG TABLET NG SCH (08:10)
[2021-02-14] MEDS: ZINC SULFATE 220 MG ( 50 ) CAPSULE NG SCH (08:10)
[2021-02-14] MEDS: LACTULOSE 20G/30ML UDC PO SCH (08:18)
[2021-02-14] MEDS: METHYLPREDNISOLONE SOD SUCC 40 MG/ML VIAL IV SCH (08:19)
[2021-02-14] MEDS: DORZOLAM/TIMOLOL 2.23/0.68% OPHTH DROPS 10ML BOTHEYE SCH ×2 (08:44→20:47)
[2021-02-14 08:55] LABS: BG BASE EXCESS 6.6 mmol/L (-2.0-2.0); BG CARBOXYHEMOGLOBIN 0.3 % (0.5-1.5); BG DEOXYHEMOGLOBIN 4.9 % (0.0-5.0); BG HCO3 ACT 31.2 mmol/L (22.0-26.0); BG METHEMOGLOBIN 0.1 % (0.0-1.5); BG OXYGEN SATURATION 95.1 % (92.0-98.5); BG OXYHEMOGLOBIN 94.7 % (94.0-97.0); BG PH 7.459 (7.350-7.450); BG PO2 70.6 mmHg (75.0-100.0); BG SAMPLE SITE RIGHT BRACHIAL; BG VENT MODE MASK - BIPAP
[2021-02-14] MEDS: ENOXAPARIN 80MG/0.8ML SYR SUBCUT SCH ×2 (14:08→20:47)
[2021-02-14] MEDS: LATANOPROST 0.005% OPHTH DROPS 2.5ML BOTHEYE SCH (20:47)
[2021-02-15] VITALS (14 sets, daily range): BP systolic 103–141; BP diastolic 32–94
[2021-02-15] MEDS: IPRATROPIUM/ALBUTEROL 0.5-3(2.5)MG/3ML NEB HHN SCH ×6 (00:23→20:06)
[2021-02-15] MEDS: BLOOD SUGAR DIAGNOSTIC STRIP TEST SCH ×4 (00:24→17:22)
[2021-02-15] MEDS: INSULIN LISPRO 100 UNITS/ML SUBCUT SCH ×4 (06:00→17:32)
[2021-02-15 08:43] LABS: BG BASE EXCESS 7.7 mmol/L (-2.0-2.0); BG CARBOXYHEMOGLOBIN 0.3 % (0.5-1.5); BG DEOXYHEMOGLOBIN 2.3 % (0.0-5.0); BG FRACTION INSPIRED OXYGEN 40; BG HCO3 ACT 34.3 mmol/L (22.0-26.0); BG METHEMOGLOBIN 0.3 % (0.0-1.5); BG OXYGEN SATURATION 97.7 % (92.0-98.5); BG OXYHEMOGLOBIN 97.1 % (94.0-97.0); BG PCO2 58.9 mmHg (35.0-45.0); BG PH 7.383 (7.350-7.450); BG PO2 103.2 mmHg (75.0-100.0); BG SAMPLE SITE RIGHT RADIAL; BG TOTAL HEMOGLOBIN 11.1 g/dL (12.0-18.0); BG VENT MODE MASK - BIPAP
[2021-02-15] MEDS ORDERED: FUROSEMIDE 20MG/2ML VIAL IVP NR (09:30)
[2021-02-15] MEDS: LACTULOSE 20G/30ML UDC PO SCH (10:07)
[2021-02-15] MEDS: POLYETHYLENE GLYCOL 3350 (17GM) 1 DOSE PACK PO SCH (10:07)
[2021-02-15] MEDS: ENOXAPARIN 80MG/0.8ML SYR SUBCUT SCH ×2 (10:07→21:06)
[2021-02-15] MEDS: PANTOPRAZOLE SODIUM 40 MG/VIAL IV SCH (10:07)
[2021-02-15] MEDS: METHYLPREDNISOLONE SOD SUCC 40 MG/ML VIAL IV SCH (10:08)
[2021-02-15] MEDS: ZINC SULFATE 220 MG ( 50 ) CAPSULE NG SCH (10:08)
[2021-02-15] MEDS: AMLODIPINE 5MG TABLET PO SCH ×2 (10:08→21:06)
[2021-02-15] MEDS: ASCORBIC ACID 500 MG TABLET NG SCH (10:08)
[2021-02-15] MEDS: DORZOLAM/TIMOLOL 2.23/0.68% OPHTH DROPS 10ML BOTHEYE SCH ×2 (10:10→21:07)
[2021-02-15 11:32] LABS: BASOPHILS % 0.3 % (0.0-2.0); HEMATOCRIT. 32.9 % (36.0-48.0); HEMOGLOBIN. 10.6 g/dL (12.0-16.0); LYMPHOCYTES % 11.4 % (20.0-50.0); MEAN CORPUSCULAR VOLUME 83.7 fL (81.0-99.0); MEAN PLATELET VOLUME 10.6 fl (7.4-10.4); MONOCYTES % 7.3 % (2.0-8.0); PLATELET 192 x1000/uL (130-400); RED BLOOD CELL COUNT 3.93 mill/uL (4.2-5.4); RED CELL DISTRIBUTION WIDTH 16.4 % (11.6-14.6)
[2021-02-15 12:04] LABS: CHLORIDE 100 mEq/L (98-107)
[2021-02-15 12:44] LABS: BG BASE EXCESS 10.9 mmol/L (-2.0-2.0); BG CARBOXYHEMOGLOBIN 0.3 % (0.5-1.5); BG DEOXYHEMOGLOBIN 4.4 % (0.0-5.0); BG HCO3 ACT 36.5 mmol/L (22.0-26.0); BG METHEMOGLOBIN 0.1 % (0.0-1.5); BG OXYGEN SATURATION 95.6 % (92.0-98.5); BG OXYHEMOGLOBIN 95.2 % (94.0-97.0); BG PCO2 53.9 mmHg (35.0-45.0); BG PH 7.449 (7.350-7.450); BG PO2 73.4 mmHg (75.0-100.0); BG SAMPLE SITE RIGHT RADIAL; BG VENT MODE ROOM AIR
[2021-02-15] MEDS: LATANOPROST 0.005% OPHTH DROPS 2.5ML BOTHEYE SCH (21:07)
[2021-02-16] VITALS (12 sets, daily range): BP systolic 94–131; BP diastolic 32–98
[2021-02-16] MEDS: IPRATROPIUM/ALBUTEROL 0.5-3(2.5)MG/3ML NEB HHN SCH ×6 (00:15→21:29)
[2021-02-16] MEDS: BLOOD SUGAR DIAGNOSTIC STRIP TEST SCH ×4 (00:18→16:39)
[2021-02-16] MEDS: INSULIN LISPRO 100 UNITS/ML SUBCUT SCH ×4 (06:00→16:39)
[2021-02-16 06:30] LABS: BASOPHILS % 0.8 % (0.0-2.0); EOSINOPHILS % 1.3 % (0.0-5.0); HEMATOCRIT. 29.3 % (36.0-48.0); HEMOGLOBIN. 9.6 g/dL (12.0-16.0); LYMPHOCYTES % 17.7 % (20.0-50.0); MEAN CORPUSCULAR HEMOGLOBIN 27.6 pg (28.0-32.0); MEAN CORPUSCULAR VOLUME 84.5 fL (81.0-99.0); MEAN PLATELET VOLUME 11.3 fl (7.4-10.4); MONOCYTES % 10.3 % (2.0-8.0); NEUTROPHILS % 69.9 % (40.0-76.0); PLATELET 136 x1000/uL (130-400); RED BLOOD CELL COUNT 3.47 mill/uL (4.2-5.4); RED CELL DISTRIBUTION WIDTH 16.5 % (11.6-14.6)
[2021-02-16 06:51] LABS: CHLORIDE 102 mEq/L (98-107)
[2021-02-16] MEDS: ASCORBIC ACID 500 MG TABLET NG SCH (08:42)
[2021-02-16] MEDS: ZINC SULFATE 220 MG ( 50 ) CAPSULE NG SCH (08:43)
[2021-02-16] MEDS: ENOXAPARIN 80MG/0.8ML SYR SUBCUT SCH ×2 (08:43→22:22)
[2021-02-16] MEDS: PREDNISONE 20MG TABLET PO SCH (08:43)
[2021-02-16] MEDS: LACTULOSE 20G/30ML UDC PO SCH (08:43)
[2021-02-16] MEDS: PANTOPRAZOLE SODIUM 40 MG/VIAL IV SCH (08:43)
[2021-02-16] MEDS: AMLODIPINE 5MG TABLET PO SCH ×2 (08:43→21:00)
[2021-02-16] MEDS: POLYETHYLENE GLYCOL 3350 (17GM) 1 DOSE PACK PO SCH (08:44)
[2021-02-16] MEDS: DORZOLAM/TIMOLOL 2.23/0.68% OPHTH DROPS 10ML BOTHEYE SCH ×2 (08:45→22:23)
[2021-02-16] MEDS ORDERED: SODIUM POLYSTYRENE SULFONATE 15 G/60 ML BOT PO SCH (13:00)
[2021-02-16] MEDS: GUAIFENESIN 600MG ER TABLET PO SCH ×2 (16:39→22:23)
[2021-02-16] MEDS: LATANOPROST 0.005% OPHTH DROPS 2.5ML BOTHEYE SCH (22:23)
[2021-02-17] VITALS (12 sets, daily range): BP systolic 92–141; BP diastolic 38–77
[2021-02-17] MEDS: IPRATROPIUM/ALBUTEROL 0.5-3(2.5)MG/3ML NEB HHN SCH ×6 (00:10→20:56)
[2021-02-17] MEDS: BLOOD SUGAR DIAGNOSTIC STRIP TEST SCH ×4 (00:28→17:09)
[2021-02-17] MEDS: INSULIN LISPRO 100 UNITS/ML SUBCUT SCH ×4 (06:00→17:49)
[2021-02-17] MEDS: PREDNISONE 20MG TABLET PO SCH (08:34)
[2021-02-17] MEDS: ZINC SULFATE 220 MG ( 50 ) CAPSULE NG SCH (08:34)
[2021-02-17] MEDS: PANTOPRAZOLE SODIUM 40 MG/VIAL IV SCH (08:34)
[2021-02-17] MEDS: LACTULOSE 20G/30ML UDC PO SCH (08:34)
[2021-02-17] MEDS: ENOXAPARIN 80MG/0.8ML SYR SUBCUT SCH ×2 (08:34→20:59)
[2021-02-17] MEDS: ASCORBIC ACID 500 MG TABLET NG SCH (08:34)
[2021-02-17] MEDS: GUAIFENESIN 600MG ER TABLET PO SCH ×2 (08:34→20:59)
[2021-02-17] MEDS: POLYETHYLENE GLYCOL 3350 (17GM) 1 DOSE PACK PO SCH (08:35)
[2021-02-17] MEDS: AMLODIPINE 5MG TABLET PO SCH (08:35)
[2021-02-17] MEDS: DORZOLAM/TIMOLOL 2.23/0.68% OPHTH DROPS 10ML BOTHEYE SCH ×2 (08:35→21:00)
[2021-02-17 09:57] LABS: HEMATOCRIT 29.6 % (36.0-48.0); HEMOGLOBIN 9.7 g/dL (12.0-16.0); MEAN CORPUSCULAR HEMOGLOBIN 27.7 pg (28.0-32.0); MEAN CORPUSCULAR VOLUME 84.6 fL (81.0-99.0); PLATELET 99 x1000/uL (130-400); RED CELL DISTRIBUTION WIDTH 16.1 % (11.6-14.6)
[2021-02-17 10:16] LABS: CHLORIDE 103 mEq/L (98-107)
[2021-02-17] MEDS: FERROUS SULFATE 325MG TABLET PO SCH ×2 (11:25→17:49)
[2021-02-17] MEDS: AMLODIPINE 2.5MG TABLET PO SCH (20:59)
[2021-02-17] MEDS: LATANOPROST 0.005% OPHTH DROPS 2.5ML BOTHEYE SCH (21:00)
[2021-02-18] VITALS (13 sets, daily range): BP systolic 87–145; BP diastolic 40–68
[2021-02-18] MEDS: BLOOD SUGAR DIAGNOSTIC STRIP TEST SCH ×4 (00:33→17:49)
[2021-02-18] MEDS: IPRATROPIUM/ALBUTEROL 0.5-3(2.5)MG/3ML NEB HHN SCH ×6 (02:13→19:54)
[2021-02-18] MEDS: INSULIN LISPRO 100 UNITS/ML SUBCUT SCH ×4 (06:00→17:48)
[2021-02-18] MEDS: PANTOPRAZOLE SODIUM 40 MG/VIAL IV SCH (09:36)
[2021-02-18] MEDS: ZINC SULFATE 220 MG ( 50 ) CAPSULE NG SCH (09:37)
[2021-02-18] MEDS: LACTULOSE 20G/30ML UDC PO SCH (09:37)
[2021-02-18] MEDS: DORZOLAM/TIMOLOL 2.23/0.68% OPHTH DROPS 10ML BOTHEYE SCH ×2 (09:37→20:45)
[2021-02-18] MEDS: POLYETHYLENE GLYCOL 3350 (17GM) 1 DOSE PACK PO SCH (09:37)
[2021-02-18] MEDS: GUAIFENESIN 600MG ER TABLET PO SCH ×2 (09:37→20:45)
[2021-02-18] MEDS: ASCORBIC ACID 500 MG TABLET NG SCH (09:37)
[2021-02-18] MEDS: FERROUS SULFATE 325MG TABLET PO SCH ×2 (09:37→17:52)
[2021-02-18] MEDS: ENOXAPARIN 80MG/0.8ML SYR SUBCUT SCH ×2 (09:38→20:44)
[2021-02-18] MEDS: AMLODIPINE 2.5MG TABLET PO SCH ×2 (09:38→20:44)
[2021-02-18] MEDS ORDERED: IOHEXOL-300 100 ML BOTTLE ONE ×2 (16:28→20:08)
[2021-02-18] MEDS ORDERED: NALOXONE HCL 0.4MG/ML VIAL IV PRN (20:15)
[2021-02-18] MEDS: KETOROLAC 15MG/ML VIAL IV PRN (20:43)
[2021-02-18] MEDS: LATANOPROST 0.005% OPHTH DROPS 2.5ML BOTHEYE SCH (20:45)
[2021-02-18] MEDS: HYDROCODONE/APAP 7.5/325MG 1 TAB TABLET PO PRN (22:16)
[2021-02-19] VITALS (56 sets, daily range): BP systolic 49–151; BP diastolic 23–110
[2021-02-19] MEDS: IPRATROPIUM/ALBUTEROL 0.5-3(2.5)MG/3ML NEB HHN SCH ×6 (00:27→20:35)
[2021-02-19] MEDS: INSULIN LISPRO 100 UNITS/ML SUBCUT SCH ×5 (06:00→23:16)
[2021-02-19] MEDS: BLOOD SUGAR DIAGNOSTIC STRIP TEST SCH ×5 (06:00→23:16)
[2021-02-19] MEDS: LACTULOSE 20G/30ML UDC PO SCH ×2 (08:30→08:56)
[2021-02-19] MEDS: PANTOPRAZOLE SODIUM 40 MG/VIAL IV SCH (08:30)
[2021-02-19] MEDS: DORZOLAM/TIMOLOL 2.23/0.68% OPHTH DROPS 10ML BOTHEYE SCH ×2 (08:30→21:00)
[2021-02-19] MEDS: ENOXAPARIN 80MG/0.8ML SYR SUBCUT SCH (08:30)
[2021-02-19] MEDS: POLYETHYLENE GLYCOL 3350 (17GM) 1 DOSE PACK PO SCH (08:30)
[2021-02-19] MEDS: ZINC SULFATE 220 MG ( 50 ) CAPSULE NG SCH (08:30)
[2021-02-19] MEDS: FERROUS SULFATE 325MG TABLET PO SCH ×2 (08:30→17:11)
[2021-02-19] MEDS: HYDROCODONE/APAP 7.5/325MG 1 TAB TABLET PO PRN (08:31)
[2021-02-19] MEDS: ASCORBIC ACID 500 MG TABLET NG SCH (08:31)
[2021-02-19] MEDS: GUAIFENESIN 600MG ER TABLET PO SCH ×3 (08:32→20:50)
[2021-02-19] MEDS: AMLODIPINE 2.5MG TABLET PO SCH ×2 (08:32→20:50)
[2021-02-19 11:25] LABS: BASOPHILS % 0.4 % (0.0-2.0); EOSINOPHILS % 0.1 % (0.0-5.0); MEAN CORPUSCULAR HEMOGLOBIN 26.8 pg (28.0-32.0); MEAN CORPUSCULAR VOLUME 84.4 fL (81.0-99.0); MEAN PLATELET VOLUME 10.2 fl (7.4-10.4); MONOCYTES % 5.8 % (2.0-8.0); NEUTROPHILS % 84.7 % (40.0-76.0); PLATELET 87 x1000/uL (130-400); RED BLOOD CELL COUNT 2.06 mill/uL (4.2-5.4); RED CELL DISTRIBUTION WIDTH 16.9 % (11.6-14.6)
[2021-02-19 11:29] LABS: CHLORIDE 101 mEq/L (98-107)
[2021-02-19 12:31] LABS: HEMOGLOBIN. 5.5 g/dL (12.0-16.0)
[2021-02-19 12:32] LABS: HEMATOCRIT. 17.4 % (36.0-48.0)
[2021-02-19] MEDS: PHENYLEPHRINE 100 MG in DEXT 5% WATER 240 ML IV PRN (15:14)
[2021-02-19] MEDS: KETOROLAC 15MG/ML VIAL IV PRN (17:12)
[2021-02-19] MEDS: LATANOPROST 0.005% OPHTH DROPS 2.5ML BOTHEYE SCH (21:00)
[2021-02-20] VITALS (110 sets, daily range): BP systolic 78–168; BP diastolic 33–117
[2021-02-20] MEDS: IPRATROPIUM/ALBUTEROL 0.5-3(2.5)MG/3ML NEB HHN SCH ×6 (00:32→20:33)
[2021-02-20 00:51] LABS: HEMATOCRIT. 29.7 % (36.0-48.0); HEMOGLOBIN. 9.8 g/dL (12.0-16.0); MEAN CORPUSCULAR HEMOGLOBIN 29.2 pg (28.0-32.0); MEAN CORPUSCULAR VOLUME 88.4 fL (81.0-99.0); MEAN PLATELET VOLUME 11.1 fl (7.4-10.4); PLATELET 112 x1000/uL (130-400); RED BLOOD CELL COUNT 3.36 mill/uL (4.2-5.4); RED CELL DISTRIBUTION WIDTH 15.4 % (11.6-14.6)
[2021-02-20 01:09] LABS: INR 1.1; PROTHROMBIN TIME 11.6 sec (9.6-11.0)
[2021-02-20] MEDS: PHENYLEPHRINE 100 MG in DEXT 5% WATER 240 ML IV PRN ×2 (01:38→13:29)
[2021-02-20] MEDS: INSULIN LISPRO 100 UNITS/ML SUBCUT SCH ×3 (06:00→18:43)
[2021-02-20] MEDS: BLOOD SUGAR DIAGNOSTIC STRIP TEST SCH ×3 (06:42→18:26)
[2021-02-20] MEDS: KETOROLAC 15MG/ML VIAL IV PRN ×2 (06:53→15:05)
[2021-02-20 07:18] LABS: PLATELET ESTIMATE SLIGHTLY DECREASED
[2021-02-20] MEDS: ZINC SULFATE 220 MG ( 50 ) CAPSULE NG SCH (08:06)
[2021-02-20] MEDS: FERROUS SULFATE 325MG TABLET PO SCH ×2 (08:06→17:00)
[2021-02-20] MEDS: LACTULOSE 20G/30ML UDC PO SCH (08:06)
[2021-02-20] MEDS: AMLODIPINE 2.5MG TABLET PO SCH ×2 (08:06→21:00)
[2021-02-20] MEDS: GUAIFENESIN 600MG ER TABLET PO SCH ×2 (08:06→21:00)
[2021-02-20] MEDS: POLYETHYLENE GLYCOL 3350 (17GM) 1 DOSE PACK PO SCH (08:06)
[2021-02-20] MEDS: ASCORBIC ACID 500 MG TABLET NG SCH (08:06)
[2021-02-20] MEDS: DORZOLAM/TIMOLOL 2.23/0.68% OPHTH DROPS 10ML BOTHEYE SCH ×2 (08:18→21:00)
[2021-02-20] MEDS: PANTOPRAZOLE SODIUM 40 MG/VIAL IV SCH (08:18)
[2021-02-20] MEDS ORDERED: LIDOCAINE HCL 1% 30ML VIAL (10MG/ML) ONE (11:04)
[2021-02-20 12:00] LABS: CHLORIDE 102 mEq/L (98-107)
[2021-02-20] MEDS ORDERED: FENTANYL CITRATE/PF 50MCG/ML 5ML VIAL ONE (12:59)
[2021-02-20] MEDS ORDERED: MIDAZOLAM HCL 5 MG/5 ML VIAL ONE (13:00)
[2021-02-20] MEDS: DEXT 5%/0.45% NACL 1000ML 1,000 ML IV SCH (13:28)
[2021-02-20 14:14] LABS: BG BASE EXCESS -1.2 mmol/L (-2.0-2.0); BG CARBOXYHEMOGLOBIN 0.8 % (0.5-1.5); BG DEOXYHEMOGLOBIN 1.8 % (0.0-5.0); BG FRACTION INSPIRED OXYGEN 40; BG HCO3 ACT 22.7 mmol/L (22.0-26.0); BG METHEMOGLOBIN 0.2 % (0.0-1.5); BG OXYGEN SATURATION 98.2 % (92.0-98.5); BG OXYHEMOGLOBIN 97.2 % (94.0-97.0); BG PCO2 33.5 mmHg (35.0-45.0); BG PH 7.448 (7.350-7.450); BG PO2 137.3 mmHg (75.0-100.0); BG SAMPLE SITE RIGHT RADIAL; BG TOTAL HEMOGLOBIN 6.8 g/dL (12.0-18.0); BG TOTAL RESPIRATORY RATE 21 b/min; BG VENT MODE MASK - BIPAP
[2021-02-20 16:33] LABS: BASOPHILS % 0.1 % (0.0-2.0); EOSINOPHILS % 0.1 % (0.0-5.0); LYMPHOCYTES % 9.3 % (20.0-50.0); MEAN CORPUSCULAR HEMOGLOBIN 28.5 pg (28.0-32.0); MEAN CORPUSCULAR VOLUME 88.3 fL (81.0-99.0); MONOCYTES % 5.1 % (2.0-8.0); NEUTROPHILS % 85.4 % (40.0-76.0); PLATELET 111 x1000/uL (130-400); RED CELL DISTRIBUTION WIDTH 15.4 % (11.6-14.6)
[2021-02-20 16:36] LABS: HEMATOCRIT. 18.6 % (36.0-48.0)
[2021-02-20] MEDS: MIDODRINE HCL 5MG TABLET PO SCH (17:00)
[2021-02-20] MEDS: LATANOPROST 0.005% OPHTH DROPS 2.5ML BOTHEYE SCH (21:00)
[2021-02-20 23:11] LABS: BASOPHILS % 0.1 % (0.0-2.0); HEMATOCRIT. 34.8 % (36.0-48.0); HEMOGLOBIN. 11.5 g/dL (12.0-16.0); LYMPHOCYTES % 7.7 % (20.0-50.0); MEAN CORPUSCULAR HEMOGLOBIN 29.5 pg (28.0-32.0); MEAN CORPUSCULAR VOLUME 89.1 fL (81.0-99.0); MEAN PLATELET VOLUME 10.1 fl (7.4-10.4); MONOCYTES % 7.6 % (2.0-8.0); NEUTROPHILS % 84.6 % (40.0-76.0); PLATELET 104 x1000/uL (130-400); RED BLOOD CELL COUNT 3.91 mill/uL (4.2-5.4); RED CELL DISTRIBUTION WIDTH 15.1 % (11.6-14.6)
[2021-02-21] VITALS (97 sets, daily range): BP systolic 77–158; BP diastolic 45–108
[2021-02-21] MEDS: IPRATROPIUM/ALBUTEROL 0.5-3(2.5)MG/3ML NEB HHN SCH ×6 (00:55→20:34)
[2021-02-21] MEDS: DEXT 5%/0.45% NACL 1000ML 1,000 ML IV SCH (05:38)
[2021-02-21] MEDS: BLOOD SUGAR DIAGNOSTIC STRIP TEST SCH ×4 (05:39→17:34)
[2021-02-21] MEDS: INSULIN LISPRO 100 UNITS/ML SUBCUT SCH ×4 (06:17→17:17)
[2021-02-21] MEDS: AMLODIPINE 2.5MG TABLET PO SCH ×2 (08:15→21:00)
[2021-02-21] MEDS: POLYETHYLENE GLYCOL 3350 (17GM) 1 DOSE PACK PO SCH (08:15)
[2021-02-21] MEDS: LACTULOSE 20G/30ML UDC PO SCH (08:15)
[2021-02-21] MEDS: MIDODRINE HCL 5MG TABLET PO SCH ×3 (09:23→17:00)
[2021-02-21] MEDS: ASCORBIC ACID 500 MG TABLET NG SCH (09:23)
[2021-02-21] MEDS: ZINC SULFATE 220 MG ( 50 ) CAPSULE NG SCH (09:23)
[2021-02-21] MEDS: PANTOPRAZOLE SODIUM 40 MG/VIAL IV SCH (09:23)
[2021-02-21] MEDS: GUAIFENESIN 600MG ER TABLET PO SCH ×2 (09:23→20:40)
[2021-02-21] MEDS: FERROUS SULFATE 325MG TABLET PO SCH ×2 (09:23→17:16)
[2021-02-21] MEDS: DORZOLAM/TIMOLOL 2.23/0.68% OPHTH DROPS 10ML BOTHEYE SCH ×2 (09:24→21:45)
[2021-02-21 10:19] LABS: BASOPHILS % 0.3 % (0.0-2.0); EOSINOPHILS % 0.1 % (0.0-5.0); LYMPHOCYTES % 7.5 % (20.0-50.0); MEAN CORPUSCULAR HEMOGLOBIN 29.6 pg (28.0-32.0); MEAN CORPUSCULAR VOLUME 87.3 fL (81.0-99.0); MEAN PLATELET VOLUME 10.6 fl (7.4-10.4); MONOCYTES % 5.6 % (2.0-8.0); NEUTROPHILS % 86.5 % (40.0-76.0); PLATELET 78 x1000/uL (130-400); RED BLOOD CELL COUNT 3.05 mill/uL (4.2-5.4); RED CELL DISTRIBUTION WIDTH 14.8 % (11.6-14.6)
[2021-02-21 10:34] LABS: HEMATOCRIT. 26.6 % (36.0-48.0)
[2021-02-21 16:30] LABS: HEMATOCRIT 25.2 % (36.0-48.0); HEMOGLOBIN 8.5 g/dL (12.0-16.0)
[2021-02-21] MEDS: LATANOPROST 0.005% OPHTH DROPS 2.5ML BOTHEYE SCH (21:43)
[2021-02-22] VITALS (49 sets, daily range): BP systolic 114–165; BP diastolic 54–77
[2021-02-22] MEDS: IPRATROPIUM/ALBUTEROL 0.5-3(2.5)MG/3ML NEB HHN SCH ×4 (00:27→15:13)
[2021-02-22] MEDS: INSULIN LISPRO 100 UNITS/ML SUBCUT SCH ×3 (01:48→18:05)
[2021-02-22] MEDS: AMLODIPINE 2.5MG TABLET PO SCH ×2 (08:40→21:43)
[2021-02-22] MEDS: MIDODRINE HCL 5MG TABLET PO SCH ×3 (08:40→17:00)
[2021-02-22] MEDS: LACTULOSE 20G/30ML UDC PO SCH (08:47)
[2021-02-22] MEDS: PANTOPRAZOLE SODIUM 40 MG/VIAL IV SCH (08:47)
[2021-02-22] MEDS: FERROUS SULFATE 325MG TABLET PO SCH ×2 (08:47→18:03)
[2021-02-22] MEDS: POLYETHYLENE GLYCOL 3350 (17GM) 1 DOSE PACK PO SCH (08:47)
[2021-02-22] MEDS: ASCORBIC ACID 500 MG TABLET NG SCH (08:48)
[2021-02-22] MEDS: ZINC SULFATE 220 MG ( 50 ) CAPSULE NG SCH (08:48)
[2021-02-22] MEDS: DORZOLAM/TIMOLOL 2.23/0.68% OPHTH DROPS 10ML BOTHEYE SCH ×2 (08:49→21:44)
[2021-02-22] MEDS: GUAIFENESIN 600MG ER TABLET PO SCH ×2 (09:00→21:43)
[2021-02-22 10:41] LABS: CHLORIDE 108 mEq/L (98-107)
[2021-02-22] MEDS: BLOOD SUGAR DIAGNOSTIC STRIP TEST SCH ×3 (12:00→17:25)
[2021-02-22 12:07] LABS: BASOPHILS % 0.3 % (0.0-2.0); EOSINOPHILS % 0.7 % (0.0-5.0); HEMATOCRIT. 28.7 % (36.0-48.0); HEMOGLOBIN. 9.5 g/dL (12.0-16.0); LYMPHOCYTES % 9.5 % (20.0-50.0); MEAN CORPUSCULAR HEMOGLOBIN 30.1 pg (28.0-32.0); MEAN CORPUSCULAR VOLUME 91.1 fL (81.0-99.0); MEAN PLATELET VOLUME 11.6 fl (7.4-10.4); MONOCYTES % 6.6 % (2.0-8.0); NEUTROPHILS % 82.9 % (40.0-76.0); PLATELET 59 x1000/uL (130-400); RED BLOOD CELL COUNT 3.15 mill/uL (4.2-5.4); RED CELL DISTRIBUTION WIDTH 16.2 % (11.6-14.6)
[2021-02-22] MEDS: DEXT 5%/0.45% NACL 1000ML 1,000 ML IV SCH (15:21)
[2021-02-22] MEDS: LATANOPROST 0.005% OPHTH DROPS 2.5ML BOTHEYE SCH (21:44)
[2021-02-23] VITALS (38 sets, daily range): BP systolic 112–184; BP diastolic 54–163
[2021-02-23] MEDS: INSULIN LISPRO 100 UNITS/ML SUBCUT SCH ×4 (06:00→18:47)
[2021-02-23] MEDS: BLOOD SUGAR DIAGNOSTIC STRIP TEST SCH ×4 (06:00→18:41)
[2021-02-23] MEDS: DEXT 5%/0.45% NACL 1000ML 1,000 ML IV SCH ×2 (06:36→22:52)
[2021-02-23 07:21] LABS: BASOPHILS % 0.4 % (0.0-2.0); EOSINOPHILS % 2.3 % (0.0-5.0); HEMATOCRIT. 24.8 % (36.0-48.0); HEMOGLOBIN. 8.3 g/dL (12.0-16.0); LYMPHOCYTES % 10.8 % (20.0-50.0); MEAN CORPUSCULAR HEMOGLOBIN 30.2 pg (28.0-32.0); MEAN CORPUSCULAR VOLUME 90.7 fL (81.0-99.0); MEAN PLATELET VOLUME 9.7 fl (7.4-10.4); MONOCYTES % 6.8 % (2.0-8.0); NEUTROPHILS % 79.7 % (40.0-76.0); PLATELET 102 x1000/uL (130-400); RED BLOOD CELL COUNT 2.74 mill/uL (4.2-5.4); RED CELL DISTRIBUTION WIDTH 15.6 % (11.6-14.6)
[2021-02-23 08:37] LABS: CHLORIDE 109 mEq/L (98-107)
[2021-02-23] MEDS: DORZOLAM/TIMOLOL 2.23/0.68% OPHTH DROPS 10ML BOTHEYE SCH ×2 (08:43→22:49)
[2021-02-23] MEDS: ASCORBIC ACID 500 MG TABLET NG SCH (08:44)
[2021-02-23] MEDS: ZINC SULFATE 220 MG ( 50 ) CAPSULE NG SCH (08:44)
[2021-02-23] MEDS: LACTULOSE 20G/30ML UDC PO SCH (08:44)
[2021-02-23] MEDS: MIDODRINE HCL 5MG TABLET PO SCH (08:44)
[2021-02-23] MEDS: PANTOPRAZOLE SODIUM 40 MG/VIAL IV SCH (08:44)
[2021-02-23] MEDS: FERROUS SULFATE 325MG TABLET PO SCH ×2 (08:44→16:15)
[2021-02-23] MEDS: POLYETHYLENE GLYCOL 3350 (17GM) 1 DOSE PACK PO SCH (08:44)
[2021-02-23] MEDS: GUAIFENESIN 600MG ER TABLET PO SCH ×2 (08:44→21:00)
[2021-02-23] MEDS: AMLODIPINE 2.5MG TABLET PO SCH (08:46)
[2021-02-23] MEDS: IPRATROPIUM/ALBUTEROL 0.5-3(2.5)MG/3ML NEB HHN SCH ×3 (09:08→20:15)
[2021-02-23] MEDS ORDERED: APIXABAN 2.5 MG TABLET PO ONE (09:15)
[2021-02-23] MEDS ORDERED: AMLODIPINE 2.5MG TABLET PO NR (10:45)
[2021-02-23 10:55] LABS: HEMATOCRIT 25.2 % (36.0-48.0); HEMOGLOBIN 8.2 g/dL (12.0-16.0)
[2021-02-23] MEDS ORDERED: ETOMIDATE 2MG/ML 10ML VIAL IV ONE (10:55)
[2021-02-23] MEDS ORDERED: VECURONIUM BROMIDE 10 MG/VIAL IV ONE (10:55)
[2021-02-23] MEDS ORDERED: SODIUM CHLORIDE 0.9% 10ML VIAL ONE (10:55)
[2021-02-23] MEDS ORDERED: LORAZEPAM 2MG/ML CPJ IV PRN (12:15)
[2021-02-23 14:10] LABS: BG BASE EXCESS 3.4 mmol/L (-2.0-2.0); BG CARBOXYHEMOGLOBIN 0.4 % (0.5-1.5); BG DEOXYHEMOGLOBIN 6.4 % (0.0-5.0); BG FRACTION INSPIRED OXYGEN 40; BG HCO3 ACT 33.8 mmol/L (22.0-26.0); BG METHEMOGLOBIN 0.2 % (0.0-1.5); BG OXYGEN SATURATION 93.6 % (92.0-98.5); BG PCO2 95.6 mmHg (35.0-45.0); BG PH 7.166 (7.350-7.450); BG PO2 79.9 mmHg (75.0-100.0); BG SAMPLE SITE LEFT RADIAL; BG TOTAL HEMOGLOBIN 9.8 g/dL (12.0-18.0); BG VENT MODE MASK - BIPAP
[2021-02-23] MEDS: METHYLPREDNISOLONE SOD SUCC 40 MG/ML VIAL IV SCH ×2 (14:15→22:52)
[2021-02-23 15:46] LABS: BG BASE EXCESS 2.6 mmol/L (-2.0-2.0); BG CARBOXYHEMOGLOBIN 0.4 % (0.5-1.5); BG DEOXYHEMOGLOBIN 6.6 % (0.0-5.0); BG FRACTION INSPIRED OXYGEN 40; BG HCO3 ACT 32.6 mmol/L (22.0-26.0); BG METHEMOGLOBIN 0.5 % (0.0-1.5); BG OXYGEN SATURATION 93.3 % (92.0-98.5); BG OXYHEMOGLOBIN 92.5 % (94.0-97.0); BG PH 7.186 (7.350-7.450); BG PO2 82.3 mmHg (75.0-100.0); BG SAMPLE SITE LEFT RADIAL; BG TOTAL HEMOGLOBIN 10.1 g/dL (12.0-18.0); BG TOTAL RESPIRATORY RATE 26 b/min; BG VENT MODE MASK - BIPAP
[2021-02-23] MEDS ORDERED: FLUMAZENIL 0.1 MG/ML 5ML VIAL IV NR (17:15)
[2021-02-23] MEDS ORDERED: PROPOFOL 10MG/ML 100ML 100 ML IV PRN (17:30)
[2021-02-23] MEDS ORDERED: PHENYLEPHRINE 100 MG in DEXT 5% WATER 240 ML IV PRN (17:30)
[2021-02-23] MEDS: PROPOFOL 10MG/ML 100ML 100 ML IV PRN (18:41)
[2021-02-23 18:48] LABS: BG BASE EXCESS 5.4 mmol/L (-2.0-2.0); BG CARBOXYHEMOGLOBIN 0.2 % (0.5-1.5); BG DEOXYHEMOGLOBIN 1.2 % (0.0-5.0); BG FRACTION INSPIRED OXYGEN 50; BG HCO3 ACT 28.3 mmol/L (22.0-26.0); BG METHEMOGLOBIN 0.2 % (0.0-1.5); BG OXYGEN SATURATION 98.8 % (92.0-98.5); BG OXYHEMOGLOBIN 98.4 % (94.0-97.0); BG PCO2 34.6 mmHg (35.0-45.0); BG PO2 139.9 mmHg (75.0-100.0); BG SAMPLE SITE LEFT RADIAL; BG TOTAL HEMOGLOBIN 10.1 g/dL (12.0-18.0); BG VENT MODE VENT - AC
[2021-02-23] MEDS: FENTANYL CITRATE/PF 2,500 MCG in SODIUM CHLORIDE 0.9% 200 ML IV PRN (19:00)
[2021-02-23] MEDS: LATANOPROST 0.005% OPHTH DROPS 2.5ML BOTHEYE SCH (22:50)
[2021-02-23] MEDS: AMLODIPINE 5MG TABLET PO SCH (22:52)
[2021-02-24] VITALS (95 sets, daily range): BP systolic 91–187; BP diastolic 24–108
[2021-02-24] MEDS: IPRATROPIUM/ALBUTEROL 0.5-3(2.5)MG/3ML NEB HHN SCH ×6 (00:07→20:22)
[2021-02-24] MEDS: INSULIN LISPRO 100 UNITS/ML SUBCUT SCH ×4 (01:57→17:38)
[2021-02-24] MEDS: METHYLPREDNISOLONE SOD SUCC 40 MG/ML VIAL IV SCH ×3 (06:59→21:42)
[2021-02-24] MEDS: BLOOD SUGAR DIAGNOSTIC STRIP TEST SCH ×4 (06:59→17:34)
[2021-02-24] MEDS: PROPOFOL 10MG/ML 100ML 100 ML IV PRN ×2 (07:05→19:23)
[2021-02-24] MEDS: FENTANYL CITRATE/PF 2,500 MCG in SODIUM CHLORIDE 0.9% 200 ML IV PRN (07:23)
[2021-02-24 07:25] LABS: BASOPHILS % 0.7 % (0.0-2.0); CHLORIDE 112 mEq/L (98-107); EOSINOPHILS % 0.1 % (0.0-5.0); HEMATOCRIT. 22.1 % (36.0-48.0); HEMOGLOBIN. 7.4 g/dL (12.0-16.0); LYMPHOCYTES % 10.6 % (20.0-50.0); MEAN CORPUSCULAR VOLUME 89.1 fL (81.0-99.0); MEAN PLATELET VOLUME 10.1 fl (7.4-10.4); MONOCYTES % 8.6 % (2.0-8.0); PLATELET 88 x1000/uL (130-400); RED BLOOD CELL COUNT 2.47 mill/uL (4.2-5.4); RED CELL DISTRIBUTION WIDTH 15.6 % (11.6-14.6)
[2021-02-24] MEDS: PANTOPRAZOLE SODIUM 40 MG/VIAL IV SCH (08:12)
[2021-02-24] MEDS: LACTULOSE 20G/30ML UDC PO SCH (08:12)
[2021-02-24] MEDS: ASCORBIC ACID 500 MG TABLET NG SCH (08:12)
[2021-02-24] MEDS: ZINC SULFATE 220 MG ( 50 ) CAPSULE NG SCH (08:12)
[2021-02-24] MEDS: AMLODIPINE 5MG TABLET PO SCH ×2 (08:12→21:42)
[2021-02-24] MEDS: FERROUS SULFATE 325MG TABLET PO SCH ×2 (08:12→16:28)
[2021-02-24] MEDS: GUAIFENESIN 600MG ER TABLET PO SCH ×2 (09:00→21:41)
[2021-02-24] MEDS: HYDRALAZINE 20MG/ML VIAL IV PRN (09:00)
[2021-02-24 09:08] LABS: BG BASE EXCESS 5.3 mmol/L (-2.0-2.0); BG CARBOXYHEMOGLOBIN 0.1 % (0.5-1.5); BG DEOXYHEMOGLOBIN 0.6 % (0.0-5.0); BG FRACTION INSPIRED OXYGEN 100; BG HCO3 ACT 26.7 mmol/L (22.0-26.0); BG METHEMOGLOBIN 0.2 % (0.0-1.5); BG OXYGEN SATURATION 99.4 % (92.0-98.5); BG OXYHEMOGLOBIN 99.1 % (94.0-97.0); BG PCO2 28.6 mmHg (35.0-45.0); BG PH 7.588 (7.350-7.450); BG PO2 233.4 mmHg (75.0-100.0); BG SAMPLE SITE LEFT RADIAL; BG TOTAL HEMOGLOBIN 10.7 g/dL (12.0-18.0); BG TOTAL RESPIRATORY RATE 18 b/min; BG VENT MODE VENT - AC
[2021-02-24] MEDS ORDERED: POTASSIUM CHLORIDE 20MEQ/PACKET PO NR (09:15)
[2021-02-24] MEDS: POLYETHYLENE GLYCOL 3350 (17GM) 1 DOSE PACK PO SCH (09:26)
[2021-02-24] MEDS: LOSARTAN POTASSIUM 25 MG TABLET PO SCH ×2 (09:26→16:28)
[2021-02-24] MEDS: DORZOLAM/TIMOLOL 2.23/0.68% OPHTH DROPS 10ML BOTHEYE SCH ×2 (10:20→21:41)
[2021-02-24] MEDS ORDERED: PROPOFOL 10MG/ML 100ML 100 ML IV PRN (13:15)
[2021-02-24] MEDS: DEXT 5%/0.45% NACL 1000ML 1,000 ML IV SCH (16:28)
[2021-02-24] MEDS: LATANOPROST 0.005% OPHTH DROPS 2.5ML BOTHEYE SCH (21:41)
[2021-02-25] VITALS (97 sets, daily range): BP systolic 51–142; BP diastolic 25–92
[2021-02-25] MEDS: BLOOD SUGAR DIAGNOSTIC STRIP TEST SCH ×4 (00:21→17:02)
[2021-02-25] MEDS: INSULIN LISPRO 100 UNITS/ML SUBCUT SCH ×4 (00:26→17:09)
[2021-02-25] MEDS: IPRATROPIUM/ALBUTEROL 0.5-3(2.5)MG/3ML NEB HHN SCH ×6 (00:30→20:31)
[2021-02-25 01:39] LABS: VITAMIN B12 SERUM 341 pg/mL (211-911)
[2021-02-25] MEDS: METHYLPREDNISOLONE SOD SUCC 40 MG/ML VIAL IV SCH ×3 (06:32→21:07)
[2021-02-25] MEDS: PANTOPRAZOLE SODIUM 40 MG/VIAL IV SCH (08:30)
[2021-02-25] MEDS: POLYETHYLENE GLYCOL 3350 (17GM) 1 DOSE PACK PO SCH (08:30)
[2021-02-25] MEDS: ZINC SULFATE 220 MG ( 50 ) CAPSULE NG SCH (08:30)
[2021-02-25] MEDS: LOSARTAN POTASSIUM 25 MG TABLET PO SCH ×2 (08:30→17:00)
[2021-02-25] MEDS: FERROUS SULFATE 325MG TABLET PO SCH ×2 (08:30→17:10)
[2021-02-25] MEDS: LACTULOSE 20G/30ML UDC PO SCH (08:30)
[2021-02-25] MEDS: AMLODIPINE 5MG TABLET PO SCH ×2 (08:31→20:37)
[2021-02-25] MEDS: DEXT 5%/0.45% NACL 1000ML 1,000 ML IV SCH ×2 (08:31→21:14)
[2021-02-25] MEDS: GUAIFENESIN 600MG ER TABLET PO SCH ×2 (08:31→20:38)
[2021-02-25] MEDS: ASCORBIC ACID 500 MG TABLET NG SCH (08:33)
[2021-02-25 08:58] LABS: BASOPHILS % 0.4 % (0.0-2.0); EOSINOPHILS % 0.1 % (0.0-5.0); HEMATOCRIT. 24.8 % (36.0-48.0); HEMOGLOBIN. 8.1 g/dL (12.0-16.0); LYMPHOCYTES % 7.3 % (20.0-50.0); MEAN CORPUSCULAR VOLUME 91.9 fL (81.0-99.0); MEAN PLATELET VOLUME 10.5 fl (7.4-10.4); MONOCYTES % 8.2 % (2.0-8.0); PLATELET 111 x1000/uL (130-400); RED BLOOD CELL COUNT 2.69 mill/uL (4.2-5.4)
[2021-02-25 09:01] LABS: CHLORIDE 104 mEq/L (98-107)
[2021-02-25] MEDS: DORZOLAM/TIMOLOL 2.23/0.68% OPHTH DROPS 10ML BOTHEYE SCH ×2 (09:25→21:07)
[2021-02-25 10:17] LABS: BG BASE EXCESS 2.8 mmol/L (-2.0-2.0); BG CARBOXYHEMOGLOBIN 0.3 % (0.5-1.5); BG DEOXYHEMOGLOBIN 1.4 % (0.0-5.0); BG FRACTION INSPIRED OXYGEN 40; BG HCO3 ACT 27.1 mmol/L (22.0-26.0); BG METHEMOGLOBIN 0.6 % (0.0-1.5); BG OXYGEN SATURATION 98.6 % (92.0-98.5); BG OXYHEMOGLOBIN 97.7 % (94.0-97.0); BG PCO2 40.1 mmHg (35.0-45.0); BG PH 7.447 (7.350-7.450); BG PO2 145.8 mmHg (75.0-100.0); BG TOTAL HEMOGLOBIN 9.3 g/dL (12.0-18.0); BG VENT MODE VENT - AC
[2021-02-25 13:50] LABS: BG BASE EXCESS 2.1 mmol/L (-2.0-2.0); BG CARBOXYHEMOGLOBIN 0.3 % (0.5-1.5); BG DEOXYHEMOGLOBIN 3.4 % (0.0-5.0); BG FRACTION INSPIRED OXYGEN 28; BG HCO3 ACT 26.5 mmol/L (22.0-26.0); BG METHEMOGLOBIN 0.4 % (0.0-1.5); BG OXYGEN SATURATION 96.6 % (92.0-98.5); BG OXYHEMOGLOBIN 95.9 % (94.0-97.0); BG PCO2 40.8 mmHg (35.0-45.0); BG PH 7.431 (7.350-7.450); BG PO2 85.6 mmHg (75.0-100.0); BG SAMPLE SITE LEFT RADIAL; BG TOTAL HEMOGLOBIN 8.7 g/dL (12.0-18.0); BG TOTAL RESPIRATORY RATE 14 b/min; BG VENT MODE VENT - SIMV
[2021-02-25] MEDS ORDERED: PROPOFOL 10MG/ML 100ML 100 ML IV PRN (17:00)
[2021-02-25] MEDS: FENTANYL CITRATE/PF 2,500 MCG in SODIUM CHLORIDE 0.9% 200 ML IV PRN (21:07)
[2021-02-25] MEDS: LATANOPROST 0.005% OPHTH DROPS 2.5ML BOTHEYE SCH (21:28)
[2021-02-26] VITALS (97 sets, daily range): BP systolic 40–162; BP diastolic 20–110
[2021-02-26] MEDS: IPRATROPIUM/ALBUTEROL 0.5-3(2.5)MG/3ML NEB HHN SCH ×6 (00:32→20:59)
[2021-02-26] MEDS: INSULIN LISPRO 100 UNITS/ML SUBCUT SCH ×4 (00:48→17:43)
[2021-02-26] MEDS: BLOOD SUGAR DIAGNOSTIC STRIP TEST SCH ×4 (00:49→17:32)
[2021-02-26] MEDS: METHYLPREDNISOLONE SOD SUCC 40 MG/ML VIAL IV SCH ×3 (05:18→21:35)
[2021-02-26 06:32] LABS: HEMATOCRIT. 25.9 % (36.0-48.0); HEMOGLOBIN. 8.7 g/dL (12.0-16.0); MEAN CORPUSCULAR HEMOGLOBIN 30.5 pg (28.0-32.0); MEAN CORPUSCULAR VOLUME 91.2 fL (81.0-99.0); MEAN PLATELET VOLUME 9.3 fl (7.4-10.4); PLATELET 136 x1000/uL (130-400); RED BLOOD CELL COUNT 2.84 mill/uL (4.2-5.4); RED CELL DISTRIBUTION WIDTH 17.4 % (11.6-14.6)
[2021-02-26 06:40] LABS: CHLORIDE 101 mEq/L (98-107)
[2021-02-26] MEDS: PANTOPRAZOLE SODIUM 40 MG/VIAL IV SCH (08:17)
[2021-02-26] MEDS: LACTULOSE 20G/30ML UDC PO SCH (08:17)
[2021-02-26] MEDS: ZINC SULFATE 220 MG ( 50 ) CAPSULE NG SCH (08:18)
[2021-02-26] MEDS: FERROUS SULFATE 325MG TABLET PO SCH ×2 (08:18→17:00)
[2021-02-26] MEDS: POLYETHYLENE GLYCOL 3350 (17GM) 1 DOSE PACK PO SCH (08:18)
[2021-02-26] MEDS: ASCORBIC ACID 500 MG TABLET NG SCH (08:18)
[2021-02-26] MEDS: AMLODIPINE 5MG TABLET PO SCH ×2 (08:18→20:36)
[2021-02-26] MEDS: LOSARTAN POTASSIUM 25 MG TABLET PO SCH ×2 (08:18→17:00)
[2021-02-26] MEDS: DORZOLAM/TIMOLOL 2.23/0.68% OPHTH DROPS 10ML BOTHEYE SCH ×2 (08:19→20:43)
[2021-02-26] MEDS: GUAIFENESIN 600MG ER TABLET PO SCH ×2 (08:19→20:37)
[2021-02-26 08:56] LABS: BG BASE EXCESS 1.4 mmol/L (-2.0-2.0); BG CARBOXYHEMOGLOBIN 0.9 % (0.5-1.5); BG DEOXYHEMOGLOBIN 5.7 % (0.0-5.0); BG FRACTION INSPIRED OXYGEN 28; BG HCO3 ACT 28.3 mmol/L (22.0-26.0); BG METHEMOGLOBIN 0.4 % (0.0-1.5); BG OXYGEN SATURATION 94.2 % (92.0-98.5); BG PCO2 57.4 mmHg (35.0-45.0); BG PH 7.311 (7.350-7.450); BG PO2 71.7 mmHg (75.0-100.0); BG SAMPLE SITE LEFT RADIAL; BG TOTAL HEMOGLOBIN 9.4 g/dL (12.0-18.0); BG TOTAL RESPIRATORY RATE 10 b/min; BG VENT MODE VENT - SIMV
[2021-02-26] MEDS ORDERED: SODIUM POLYSTYRENE SULFONATE 15 G/60 ML BOT PO SCH (09:00)
[2021-02-26] MEDS: SODIUM CHLORIDE 0.9% 1,000 ML IV SCH ×2 (09:46→20:43)
[2021-02-26] MEDS ORDERED: FUROSEMIDE 20MG/2ML VIAL IVP SCH (10:00)
[2021-02-26 10:59] LABS: PLATELET ESTIMATE NORMAL
[2021-02-26] MEDS ORDERED: FENTANYL CITRATE/PF 2,500 MCG in SODIUM CHLORIDE 0.9% 200 ML IV PRN (12:30)
[2021-02-26 15:20] LABS: BG BASE EXCESS -0.9 mmol/L (-2.0-2.0); BG CARBOXYHEMOGLOBIN 1.3 % (0.5-1.5); BG DEOXYHEMOGLOBIN 10.8 % (0.0-5.0); BG FRACTION INSPIRED OXYGEN 28; BG HCO3 ACT 26.2 mmol/L (22.0-26.0); BG METHEMOGLOBIN 0.1 % (0.0-1.5); BG OXYHEMOGLOBIN 87.8 % (94.0-97.0); BG PCO2 55.3 mmHg (35.0-45.0); BG PH 7.294 (7.350-7.450); BG PO2 57.4 mmHg (75.0-100.0); BG SAMPLE SITE LEFT RADIAL; BG TOTAL HEMOGLOBIN 11.4 g/dL (12.0-18.0); BG TOTAL RESPIRATORY RATE 22 b/min; BG VENT MODE VENT - SIMV
[2021-02-26] MEDS: ONDANSETRON HCL 4MG/2ML INJ IV PRN (17:20)
[2021-02-26 17:56] LABS: BG BASE EXCESS -3.2 mmol/L (-2.0-2.0); BG CARBOXYHEMOGLOBIN 1.6 % (0.5-1.5); BG DEOXYHEMOGLOBIN 11.5 % (0.0-5.0); BG HCO3 ACT 23.5 mmol/L (22.0-26.0); BG OXYGEN SATURATION 88.3 % (92.0-98.5); BG OXYHEMOGLOBIN 86.9 % (94.0-97.0); BG PCO2 48.6 mmHg (35.0-45.0); BG PH 7.302 (7.350-7.450); BG PO2 52.6 mmHg (75.0-100.0); BG SAMPLE SITE RIGHT RADIAL; BG TOTAL HEMOGLOBIN 12.6 g/dL (12.0-18.0); BG VENT MODE VENT - AC
[2021-02-26] MEDS ORDERED: PIPERACILLIN/TAZOBACTAM 3.375G in DEXT 5% WATER 50ML IV SCH (20:00)
[2021-02-26] MEDS: LATANOPROST 0.005% OPHTH DROPS 2.5ML BOTHEYE SCH (20:43)
[2021-02-26 22:05] LABS: BG BASE EXCESS -7.1 mmol/L (-2.0-2.0); BG DEOXYHEMOGLOBIN 12.9 % (0.0-5.0); BG FRACTION INSPIRED OXYGEN 35; BG HCO3 ACT 18.4 mmol/L (22.0-26.0); BG METHEMOGLOBIN 0.1 % (0.0-1.5); BG PCO2 36.7 mmHg (35.0-45.0); BG PH 7.317 (7.350-7.450); BG PO2 50.9 mmHg (75.0-100.0); BG SAMPLE SITE RIGHT BRACHIAL; BG TOTAL HEMOGLOBIN 11.3 g/dL (12.0-18.0); BG VENT MODE VENT - AC
[2021-02-27] MEDS ORDERED: PIPERACILLIN/TAZOBACTAM 3.375 G in DEXTROSE 5% WATER 50 ML IV SCH
[2021-02-27 00:12] VITALS: BP 91/73
[2021-02-27 00:21] VITALS: BP 112/95
[2021-02-27] MEDS: IPRATROPIUM/ALBUTEROL 0.5-3(2.5)MG/3ML NEB HHN SCH (00:36)
[2021-02-27 01:00] VITALS: BP 105/50
[2021-02-27] MEDS ORDERED: NOREPINEPHRINE 8 MG in DEXTROSE 5% WATER 250 ML IV PRN (01:00)
[2021-02-27] MEDS ORDERED: NOREPINEPHRINE 32 MG in DEXT 5% WATER 218 ML IV PRN (01:00)
[2021-02-27] MEDS ORDERED: NOREPINEPHRINE 8MG/250ML PMX 250ML IV PRN (01:15)
[2021-02-27] MEDS ORDERED: SODIUM BICARBONATE 8.4% 1 MEQ/ML 50ML SYR IV ONE (08:06)
[2021-02-27] MEDS ORDERED: EPINEPHRINE 0.1MG/ML (1:10,000) 10ML SYR ONE (08:06)
[2021-02-27] MEDS ORDERED: CALCIUM CHLORIDE 1GM/10ML SYR IV ONE (08:06)
== END 2021-02-27 01:03 | DRG 871 ==
LOC: ER 19:31 → MICUSO 22:35 → CVICU 02-02 09:04 → 5EST 02-05 09:40 → CVICU 02-07 09:46 → 3WST 02-12 21:40 → MICUSO 02-19 13:41 → 3WST 02-22 20:57 → CVICU 02-23 18:30
PROVIDERS: ADMIT Hospitalist; ATTEND Hospitalist
PROC: 0BH17EZ Insertion of Endotracheal Airway into Trachea, Via Natural or Artificial Opening (ICD-10-PCS; principal; 2021-02-01)
PROC: 5A1945Z Respiratory Ventilation, 24-96 Consecutive Hours (ICD-10-PCS; 2021-02-01)
PROC: 06HY33Z Insertion of Infusion Device into Lower Vein, Percutaneous Approach (ICD-10-PCS; 2021-02-01)
PROC: 5A09357 Assistance with Respiratory Ventilation, Less than 24 Consecutive Hours, Continuous Positive Airway Pressure (ICD-10-PCS; 2021-02-01)
PROC: 5A09357 Assistance with Respiratory Ventilation, Less than 24 Consecutive Hours, Continuous Positive Airway Pressure (ICD-10-PCS; 2021-02-05)
PROC: 0BH17EZ Insertion of Endotracheal Airway into Trachea, Via Natural or Artificial Opening (ICD-10-PCS; 2021-02-07)
PROC: 5A1935Z Respiratory Ventilation, Less than 24 Consecutive Hours (ICD-10-PCS; 2021-02-07)
PROC: 5A09357 Assistance with Respiratory Ventilation, Less than 24 Consecutive Hours, Continuous Positive Airway Pressure (ICD-10-PCS; 2021-02-07)
PROC: 0BH17EZ Insertion of Endotracheal Airway into Trachea, Via Natural or Artificial Opening (ICD-10-PCS; 2021-02-08)
PROC: 5A1945Z Respiratory Ventilation, 24-96 Consecutive Hours (ICD-10-PCS; 2021-02-08)
PROC: 5A09357 Assistance with Respiratory Ventilation, Less than 24 Consecutive Hours, Continuous Positive Airway Pressure (ICD-10-PCS; 2021-02-08)
PROC: 5A09457 Assistance with Respiratory Ventilation, 24-96 Consecutive Hours, Continuous Positive Airway Pressure (ICD-10-PCS; 2021-02-13)
PROC: 02HV33Z Insertion of Infusion Device into Superior Vena Cava, Percutaneous Approach (ICD-10-PCS; 2021-02-14)
PROC: B548ZZA Ultrasonography of Superior Vena Cava, Guidance (ICD-10-PCS; 2021-02-14)
PROC: 5A09357 Assistance with Respiratory Ventilation, Less than 24 Consecutive Hours, Continuous Positive Airway Pressure (ICD-10-PCS; 2021-02-16)
PROC: 5A09357 Assistance with Respiratory Ventilation, Less than 24 Consecutive Hours, Continuous Positive Airway Pressure (ICD-10-PCS; 2021-02-17)
PROC: 30233N1 Transfusion of Nonautologous Red Blood Cells into Peripheral Vein, Percutaneous Approach (ICD-10-PCS; 2021-02-19)
PROC: 30233K1 Transfusion of Nonautologous Frozen Plasma into Peripheral Vein, Percutaneous Approach (ICD-10-PCS; 2021-02-19)
PROC: 5A09357 Assistance with Respiratory Ventilation, Less than 24 Consecutive Hours, Continuous Positive Airway Pressure (ICD-10-PCS; 2021-02-19)
PROC: 05H633Z Insertion of Infusion Device into Left Subclavian Vein, Percutaneous Approach (ICD-10-PCS; 2021-02-20)
PROC: B547ZZA Ultrasonography of Left Subclavian Vein, Guidance (ICD-10-PCS; 2021-02-20)
PROC: 5A09457 Assistance with Respiratory Ventilation, 24-96 Consecutive Hours, Continuous Positive Airway Pressure (ICD-10-PCS; 2021-02-20)
PROC: 0BH17EZ Insertion of Endotracheal Airway into Trachea, Via Natural or Artificial Opening (ICD-10-PCS; 2021-02-23)
PROC: 5A1945Z Respiratory Ventilation, 24-96 Consecutive Hours (ICD-10-PCS; 2021-02-23)
PROC: 5A09357 Assistance with Respiratory Ventilation, Less than 24 Consecutive Hours, Continuous Positive Airway Pressure (ICD-10-PCS; 2021-02-23)
PROC: 5A12012 Performance of Cardiac Output, Single, Manual (ICD-10-PCS; 2021-02-27)
DX: A41.9 Sepsis, unspecified organism (principal); L89.153 Pressure ulcer of sacral region, stage 3; E43 Unspecified severe protein-calorie malnutrition; J96.22 Acute and chronic respiratory failure with hypercapnia; J18.9 Pneumonia, unspecified organism; R65.21 Severe sepsis with septic shock; I26.99 Other pulmonary embolism without acute cor pulmonale; J96.21 Acute and chronic respiratory failure with hypoxia; G92.8 Other toxic encephalopathy; J44.1 Chronic obstructive pulmonary disease with (acute) exacerbation; J44.0 Chronic obstructive pulmonary disease with (acute) lower respiratory infection; E87.2 Acidosis; J98.11 Atelectasis; D62 Acute posthemorrhagic anemia; M48.54XA Collapsed vertebra, not elsewhere classified, thoracic region, initial encounter for fracture; M48.56XA Collapsed vertebra, not elsewhere classified, lumbar region, initial encounter for fracture; E11.9 Type 2 diabetes mellitus without complications; G47.33 Obstructive sleep apnea (adult) (pediatric); I11.0 Hypertensive heart disease with heart failure; I50.9 Heart failure, unspecified; Z20.822 Contact with and (suspected) exposure to COVID-19; F03.90 Unspecified dementia, unspecified severity, without behavioral disturbance, psychotic disturbance, mood disturbance, and anxiety; I46.9 Cardiac arrest, cause unspecified; S09.8XXA Other specified injuries of head, initial encounter; X58.XXXA Exposure to other specified factors, initial encounter; D69.6 Thrombocytopenia, unspecified; E87.5 Hyperkalemia; S40.021A Contusion of right upper arm, initial encounter; S20.211A Contusion of right front wall of thorax, initial encounter; Z78.1 Physical restraint status; Z68.32 Body mass index [BMI] 32.0-32.9, adult; Y92.89 Other specified places as the place of occurrence of the external cause; Y99.8 Other external cause status; Y93.89 Activity, other specified
CPT/HCPCS: 31500; 36415; 36600; 71045; 71275; 73201; 74018; 74176; 76937; 80048; 80053; 80061; 80076; 80305; 81003; 82040; 82140; 82248; 82375; 82607; 82805; 82962; 83540; 83550; 83605; 83735; 83880; 84132; 84134; 84145; 84439; 84443; 84478; 84481; 84484; 85014; 85018; 85025; 85027; 85044; 86703; 86705; 86709; 86803; 86850; 86900; 86920; 86927; 87070; 87077; 87186; 87340; 87389; 92610; 93005; 93306; 93922; 93923; 93970; 93971; 94002; 94003; 94640; 94660; 97110; 97162; 97167; 97530; 97535; 99291; A6261; C1725; C9113; J0360; J0456; J0692; J0696; J1100; J1650; J1815; J1885; J1940; J2060; J2250; J2370; J2405; J2543; J2704; J2920; J2930; J3010; J3105; J3370; J3490; J7030; J7040; J7042; J7050; J7060; J7512; J7608; P9016; P9017; Q9967; U0003; U0005; A4315